=== PATIENT | male | born 1965 | race Caucasian/White ===

== ENCOUNTER 2020-12-31 04:21 | Inpatient (IN) | payer OTHER, MEDICAID, SELFPAY ==
[2020-12-31] VITALS (12 sets, daily range): BP systolic 100; BP diastolic 84; PULSE 91; RESP 16–24; TEMP 36.4; O2SAT 96–98; BMI 26.6
--- NOTE | 2020-12-31 04:46 | PC.NURSE ---
PATIENT WALKING TO THE SINK IN THE MIDDLE OF THE DEPARTMENT, COVERING HIS BODY IN SOAP, WASHING HIS HAIR. SECURITY CALLED TO NURSES STATION. PATIENT STARTING UNDRESSING IN THE HALLWAY. EXPOSING HIMSELF AND TOUCHING HIMSELF IN FRONT OF STAFF. FAIR AT BEDSIDE FOR EVALUATION. POLICE CONTACTED FOR EXTRA ASSISTANCE WITH PATIENT, SECURITY CONTAINING PATIENT TO ONE AREA OF THE EMERGENCY DEPARTMENT. MEDICATION RESTRAINT
[2020-12-31] MEDS: Haloperidol Lactate 5 MG/ML VIAL IM (05:00)
[2020-12-31] MEDS: LORazepam 2 MG/ML VIAL IM (05:00)
--- NOTE | 2020-12-31 05:23 | ED.PSYCH ---
HPI - Psych General Chief Complaint: Psychiatric Symptoms Stated Complaint: CRISIS,WALK INTO D STATED HI/SI Time Seen by Provider: 12/31/20 04:44 History of Present Illness HPI Narrative: 55-year-old male presented today with having agitation. Thoughts of suicidal homicidal ideation. Patient stated he is going to kill all the [place] in town. He is very upset he has thoughts about killing himself but have no specific plans. Patient did not admit to using drugs or alcohol. Denies having any history. Patient was and D's lobby. Related Data Allergies Allergy/AdvReac Type Severity Reaction Status Date / Time No Known Allergies Allergy Verified 12/31/20 04:26 Review of Systems Review of Systems: Unable to obtain 2nd to patient's condition [facility] Past Medical History Attestation statement: The following information was validated with the patient. Social History Social History Advance Directives: No Physical Exam Vital Signs: Vital Signs: Last Vital Signs Temp 97.6 F 12/31/20 04:26 Pulse 91 12/31/20 04:26 Resp 20 12/31/20 04:26 BP 100/84 12/31/20 04:26 Pulse Ox 98 12/31/20 04:26 Body Mass Index 26.6 Appearance: Alert. Oriented X3. Agitated, screaming in the ED. stating he is going to kill people. Eyes: Pupils equal, round and reactive to light. ENT: Pharynx normal. Neck: Normal inspection. Neck supple. No lymph nodes noted. No crepitus CVS: Normal heart rate and rhythm. Pulses normal. Normal S1 and S2 Respiratory: No respiratory distress. Breath sounds normal. No Wheezing. No rales Abdomen: Soft and nontender. No rigidity. No distention. good BS x4 Skin: Skin warm and dry. Normal skin color. Normal skin turgor. Extremities: No lower extremity edema. Neurovascular intact to all extremities. No Lacerations. No Rash Neuro: No motor deficit. No sensory deficit. Moving all extermities. No slurred speech MDM - Psych MDM Narrative Medical decision making narrative: Patient extremely agitated. Potential harm to self and others. Attempted to verbally deescalate the situation to no avail. Patient is sedated using Ativan and Haldol. We will get baseline labs. Will get crisis evaluation. Medical Records Attestation: I reviewed the patient's medical records.
[2020-12-31 07:33] LABS: MANUAL DIFF FLAG NO
[2020-12-31 07:34] LABS: Basophils Percent Auto 0.4 % (0-2); Eosinophils Absolute Auto 0.1 X10*3/uL (0.0-0.4); Eosinophils Percent Auto 1.3 % (0-4); Hematocrit 35.5 % (42-52); Hemoglobin 11.6 g/dl (14.0-18.0); Imm Gran Abs Auto 0.03 X10*3/uL (0.00-0.03); Imm Gran Pct Auto 0.4 % (0.0-0.4); Lymphocytes Absolute Auto 2.4 X10*3/uL (1.2-4.9); Mean Corpuscular HGB Conc 32.7 g/dl (31.0-36.0); Mean Corpuscular Hemoglobin 28.5 pg (27.0-33.0); Mean Corpuscular Volume 87.2 fL (80-98); Mean Platelet Volume 11.3 fL (9.4-12.4); Monocytes Absolute Auto 0.7 X10*3/uL (0.1-1.2); Monocytes Percent Auto 8.9 % (2-11); Neutrophils Absolute Auto 4.9 X10*3/uL (2.0-8.3); Platelet Count 167 X10*3/uL (160-400); Red Blood Count 4.07 X10*6/uL (4.60-5.80); White Blood Count 8.2 X10*3/uL (4.8-10.8)
[2020-12-31 07:52] LABS: Ethanol < 10 mg/dL
[2020-12-31 07:56] LABS: Alanine Aminotransferase 48 U/L (0-40); Albumin Level 3.6 g/dL (3.5-5.0); Alkaline Phosphatase 75 U/L (39-117); Anion Gap 10 (12-20); Aspartate Amino Transferase 43 U/L (5-37); Bilirubin Direct 0.3 mg/dL (0.0-0.5); Bilirubin Total 0.9 mg/dL (0.0-1.0); Blood Urea Nitrogen 14 mg/dL (9-16); Calcium 8.4 mg/dL (8.4-10.2); Carbon Dioxide 26 mmol/L (22-29); Chloride 106 mmol/L (96-108); Estimated Glomerular Filt Rate > 60; Glucose Random 97 mg/dL (60-115); Potassium 3.8 mmol/L (3.3-5.1); Sodium 138 mmol/L (135-145); Total Protein 6.4 g/dL (6.5-8.0)
--- NOTE | 2020-12-31 09:40 | PC.NURSE ---
patient brought over to POD, sleeping at this time. CARE team aware.
--- NOTE | 2020-12-31 16:17 | PC.NURSE ---
pt pre-accepted to M5/M3 for tomorrow (01/01) per Ananya KELLEY
--- NOTE | 2020-12-31 16:31 | PHA.MEDREC ---
Pharmacy Consult ? Medication Reconciliation Pharmacy has completed the medication reconciliation. Patient was in [facility] from 12/24 to 12/28. Medications never picked up from pharmacy
[2020-12-31 20:40] LABS: COVID-19 Test Negative (Negative); IDNOW Serial# 9DD0AD1C
[2020-12-31 20:50] LABS: Amphetamine Screen Urine Not Detected (Not Detect); Barbiturates, Urine Not Detected (Not Detect); Benzodiazepines Screen Urine Not Detected (Not Detect); Cannabinoid Screen Urine POSITIVE (Not Detect); Cocaine Screen Urine POSITIVE (Not Detect); Opiate Screen Urine POSITIVE (Not Detect); Phencyclidine Screen Urine Not Detected (Not Detect)
--- NOTE | 2021-01-01 | ECG_ITS ---
Test Reason : MED CLEARANCE Blood Pressure : / mmHG Vent. Rate : 074 BPM Atrial Rate : 074 BPM P-R Int : 166 ms QRS Dur : 082 ms QT Int : 388 ms P-R-T Axes : 052 064 047 degrees QTc Int : 430 ms Normal sinus rhythm Normal ECG When compared with ECG of 16-APR-2018 07:15, No significant change was found Referred By: Generic ED Physician Electronically Signed By:ANA PAULA WHITAKER
[2021-01-01 05:44] VITALS: BP 107/63; PULSE 58; RESP 17; TEMP 36.1; O2SAT 99
[2021-01-01] MEDS: Lithium Carbonate 300 MG CAPSULE PO ×2 (08:37→22:10)
--- NOTE | 2021-01-01 09:44 | PC.NURSE ---
Patient ambulating throughout pod, conversing and listening to music. Patient is a bed search with plan to go to M3 or M5. At this time there is no estimate to when the patient will be transferred but will be updated on any changes. Currently the patient has no complaints, listening to music through the headphones and pleasantly conversing with staff.
--- NOTE | 2021-01-01 11:25 | PC.NURSE ---
Patient ambulating throughout the pod talking with staff and other patients. Patient very excitable, talking rapidly and singing at times loudly. Patient has no complaints, has been cooperative and redirectable. Patient aware that he is a bed search with a plan for admission to M3 or M5 just awaiting assignment. Patient agreeable to plan and basic needs met.
--- NOTE | 2021-01-01 12:43 | PC.NURSE ---
Patient ambulating throughout the pod with even steady gait, talking and conversing with staff and other patients. Patient very excitable, conversing loudly and rapidly with staff and other patients. Patient able to redirected, headphones on listening to music, calm and cooperative at this time.
--- NOTE | 2021-01-01 15:14 | PC.NURSE ---
Patient alert and oriented, sitting in common area talking with other patients. Patient watching tv and happily conversing. Still waiting bed assignment.
--- NOTE | 2021-01-01 18:59 | PC.NURSE ---
Report given to inpatient behavioral health nurse for patient transfer. Awaiting admision orders.
[2021-01-01 19:29] VITALS: BP 134/82; PULSE 68; RESP 18; TEMP 36.3; O2SAT 100
[2021-01-01 20:50] VITALS: BP 130/98; PULSE 84; RESP 18; TEMP 36; O2SAT 99
[2021-01-01] MEDS: clonazePAM 1 MG TABLET PO (22:10)
[2021-01-01] MEDS: traZODone HCL 100 MG TABLET PO (22:10)
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
[2021-01-02] MEDS: Lithium Carbonate 300 MG CAPSULE PO ×2 (09:03→21:56)
[2021-01-02] MEDS: clonazePAM 1 MG TABLET PO ×2 (09:07→22:00)
[2021-01-02] MEDS: Nicotine 21 MG PATCH.TD24 TRANSDERMA (09:37)
[2021-01-02 13:28] VITALS: BP 112/57; PULSE 84
[2021-01-02] MEDS: cloNIDine HCL 0.1 MG TABLET PO (13:28)
[2021-01-02] MEDS: QUEtiapine Fumarate 50 MG TABLET PO ×3 (13:28→21:57)
--- NOTE | 2021-01-02 14:17 | MHC.RECOVRN ---
55 year old male presented to [facility] on 12/31 via EMS due to WALKING FROM [employer] TO POLICE STATION, WAS SITTING IN THE LOBBY STATING I AM GONNA KILL ALL JESS RICANS IN THE CITY . DENIES SI, DENIES ETOH OR DRUG USE TONIGHT per cage maker machine. Pt subsequently admitted to . T/w met with pt in 508 after Addiction Medicine consult placed for OUD and pt would like to initiate Suboxone. Pt reports using Suboxone off and on for 15 years. Pt has been prescribed Suboxone in the past and finds 8 mg BID helpful. Pt is currently using heroin and cocaine, IN, 1-3 bundles daily, last use 12/31. Current withdrawal symptoms include sleep disturbances, diarrhea, achy bones, and hot/cold.? Pt had spent over a year in [place] and returned to [place] 3 weeks ago. Pt plans on staying in the [place] area and would like to connect to a Suboxone provider in [place].? Case discussed with Susie Mendes APRN.?
[2021-01-02] MEDS: Buprenorphine/Naloxone 8/2 mg FILM 1 FILM SUBLINGUAL (15:30)
[2021-01-02 16:00] VITALS: PULSE 79
[2021-01-02 16:30] VITALS: BP 99/59; PULSE 79; TEMP 36.1
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
--- NOTE | 2021-01-02 16:55 | P.EN_ITS ---
Event Note Date of Service: 01/02/21 Event Note: Brief addiction note: Patient seen by this marketing copywriter and RS RN. COW score of 12. Lsat use reported as prior to admission on 12/31. Reporting daily heroin and cocaine use btwn 10-30 bags Not feeling well. Minimal engagement with this marketing copywriter. Did report previously buying suboxone and taking up to 16mg QD. Plan: -Suboxone 8mg ordered to be given now -if withdrawal sx persist may recieve additional 4mg this evening -Suboxone 8mg QD ordered for the MA . Will reassess in AM and obtain better history and plan and decide on further dosing. -full consult note to follow
[2021-01-02] MEDS: traZODone HCL 100 MG TABLET PO (22:00)
[2021-01-03 06:10] VITALS: BP 91/52; PULSE 65; RESP 20; TEMP 36.8; O2SAT 99
[2021-01-03 07:00] VITALS: BMI 33.3
[2021-01-03 08:32] LABS: Estimated Average Glucose 100 mg/dL; Hemoglobin A1c % 5.1 %
[2021-01-03] MEDS: Nicotine 21 MG PATCH.TD24 TRANSDERMA (08:38)
[2021-01-03 08:44] LABS: Ammonia 38 umol/L (13-55)
[2021-01-03 08:55] LABS: Amylase 49 U/L (28-100); Cholesterol 154 mg/dL; HDL Cholesterol 34 mg/dL; Iron 32 mcg/dL (45-160); LDL Cholesterol Calculated 109 mg/dl; Lipase 15 U/L (8-78); Percent Iron Saturation 10 % (15-50); Total Iron Binding Capacity 318 mcg/dL (228-428); Triglycerides 59 mg/dL; Unsaturated Iron Binding 286 ug/dL
[2021-01-03] MEDS: QUEtiapine Fumarate 50 MG TABLET PO ×2 (08:57→20:51)
[2021-01-03] MEDS: Lithium Carbonate 300 MG CAPSULE PO ×2 (08:57→20:51)
[2021-01-03] MEDS: Buprenorphine/Naloxone 8/2 mg FILM 1 FILM SUBLINGUAL (08:58)
[2021-01-03 09:15] LABS: Thyroid Stimulating Hormone 0.29 uIU/mL (0.32-4.0)
[2021-01-03] MEDS: clonazePAM 1 MG TABLET PO ×2 (09:19→20:56)
[2021-01-03 09:29] LABS: Folate 8.2 ng/mL (> or = 4.0); Vitamin B12 245 pg/mL (200-900)
--- NOTE | 2021-01-03 13:15 | MHC.RECOVRN ---
T/w met with pt after Suboxone initiation. Pt reports feeling great and denies withdrawal symptoms. Pt reiterated that he needs to attempt to obtain an ID from [place]. Pt also reiterated that while in [place] he was receciving 8 mg BID. Case discussed with Susie Mendes APRN.
[2021-01-03 16:00] VITALS: PULSE 88
--- NOTE | 2021-01-03 16:53 | HO.PSYCHPN ---
Subjective Subjective Date of Service: 01/03/21 Reason For Visit: Psychosis Subjective Notes: Conditional Voluntary Healthcare Proxy: No Guardianship: No Medical Problems Affecting Mental Status: No Interim History: Reports improvement with initiation of Suboxone, but with sedation as observed by addictions team and M5 team. Discussed decreasing Seroquel which he is willing to trial with the understanding we can work with the dosage as his needs evolve. Reports long hx of poor sleep, and finds the ability to rest today healing. Denies withdrawal sx when we met Medication Compliance: Yes Side effects from medications: No Attending Groups: No Review of Systems Reports behavioral changes Psychiatric: Reports abnormal sleep pattern, Reports anxiety, Reports behavioral changes, Reports change in appetite, Reports depression, Reports difficulty concentrating, Reports auditory hallucinations, Reports hopelessness, Reports irritability, Reports mood swings, Reports paranoia, Reports hallucinations and Reports suicidal ideation (able to contract for safety on M5.) Mental Status Exam Mental Status Exam Patient Appearance: Appropriate Patient Orientation: Person, Place, Time and Situation Level of Consciousness: Awake and Alert Patient Behavior: Appropriate, Talkative, Cooperative, Fatigued and Good Eye Contact Mood Description: Depressed Affect Description: Flat Patient Cognition Impaired: No Ability to Follow Directions: Good Speech Pattern: Clear and Spontaneous Speech Memory Description: Episodic Impaired Hallucinations: None Delusions: Paranoid Ideation Thought Process: Distracted Thought Content: positive for Circumstantial, positive for Tangential and positive for Suicidal Ideation Depressive Symptoms: Increased Anxiety, Diff. Making Decisions, Difficulty Sleeping, Changes in Appetite, Low Self Esteem, Loss of Energy and Difficulty Concentrating Judgement: Fair Diagnostics Vital Signs (24Hr): Vital Signs - 24 hr 01/03/21 06:10 Temperature 98.2 F Pulse Rate 65 Respiratory Rate 20 Blood Pressure 91/52 L Pulse Oximetry 99 Body Mass Index 33.3 Labs Results: 12/31/20 07:26 12/31/20 07:26 Labs: Laboratory Results - last 48 hr 01/03/21 01/03/21 01/03/21 08:04 08:05 08:05 Estimat Average Glucose Hemoglobin A1c % Magnesium 2.0 Iron 32 L TIBC 318 % Saturation 10 L Unsat Iron Binding 286 Ammonia 38 Triglycerides 59 Cholesterol 154 LDL Cholesterol, Calc 109 HDL Cholesterol 34 Amylase 49 Lipase 15 Vitamin B12 245 Folate 8.2 TSH 0.29 L 01/03/21 08:05 Estimat Average Glucose 100 Hemoglobin A1c % 5.1 Magnesium Iron TIBC % Saturation Unsat Iron Binding Ammonia Triglycerides Cholesterol LDL Cholesterol, Calc HDL Cholesterol Amylase Lipase Vitamin B12 Folate TSH Medications Medications Current Medications Generic Name Dose Route Start Last Admin Trade Name Foxq PRN Reason Stop Dose Admin Acetaminophen 650 mg 01/01/21 19:23 Acetaminophen 325 Mg Tablet PO Q6H PRN Headache/Pain Mild Scale (1-3) Al Hydroxide/Mg Hydroxide 30 ml 01/01/21 19:23 Magnesium Hydrox/Alum Hydrox 30 Ml Oral.Susp PO Q6H PRN Heartburn/Nausea Buprenorphine/Naloxone 1 film 01/03/21 09:00 01/03/21 08:58 Buprenorphine/Naloxone 8/2 Mg Film SUBLINGUAL 1 film DAILY SHMUEL Administration Clonazepam 1 mg 01/03/21 14:41 Clonazepam 1 Mg Tablet PO BID PRN Restlessness Clonidine HCl 0.1 mg 01/03/21 14:41 Clonidine Hcl 0.1 Mg Tablet PO BID PRN withdrawal Protocol Haloperidol Lactate 5 mg 01/02/21 13:01 Haloperidol Lactate 10 Mg/5 Ml Oral.Conc PO BID PRN psychosis, agitation Hydroxyzine HCl 50 mg 12/31/20 22:51 Hydroxyzine Hcl 50 Mg Tablet PO BID PRN Anxiety Hydroxyzine HCl 25 mg 01/01/21 19:23 Hydroxyzine Hcl 25 Mg Tablet PO BEDTIME PRN Anxiety [place] Carbonate 300 mg 01/01/21 09:00 01/03/21 08:57 [place] Carbonate 300 Mg Capsule PO 300 mg BID SHMUEL Administration Magnesium Hydroxide 30 ml 01/01/21 19:23 Milk Of Magnesia 30 Ml Oral.Susp PO DAILY PRN Constipation Nicotine 21 mg 01/02/21 09:30 01/03/21 08:38 Nicotine 21 Mg Patch.Td24 TRANSDERMA 21 mg DAILY SHMUEL Administration Nicotine Polacrilex 4 mg 12/31/20 10:23 01/03/21 10:26 Nicotine Polacrilex 4 Mg Lozenge BUCCAL 4 mg Q2H PRN Administration Nicotine Cravings Quetiapine Fumarate 50 mg 01/02/21 13:00 01/03/21 08:57 Quetiapine Fumarate 50 Mg Tablet PO 50 mg BID SHMUEL Administration Trazodone HCl 50 mg 01/03/21 14:41 Trazodone Hcl 50 Mg Tablet PO BEDTIME PRN insomnia Allergies Allergies Allergy/AdvReac Type Severity Reaction Status Date / Time No Known Allergies Allergy Verified 12/31/20 04:26 Assessment & Plan Assessment & Plan (1) Bipolar disorder with psychotic features: Status: Acute Code(s): F31.9 - Bipolar disorder, unspecified Assessment and Plan: 55 yo male, recent return from [place], off meds for several years, hx of bipolar disorder, depression with psychosis and a heavy history of multiple substances abuse-primarily heroin and cocaine, presents homeless with SI, HI, sexual disinhibition and in withdrawal from opiates, cocaine and cannabis. -Continue [place] -Change Haldol to prn -Decrease Seroquel to 50 mg bid B Complex 1 tab daily FeSo4 324 mg daily as pt is anemic (2) Opioid use disorder, severe, dependence: Status: Acute Code(s): F11.20 - Opioid dependence, uncomplicated Assessment and Plan: -Addiction consult to begin Clonidine -Clonidine prn -COWS (3) Cocaine use disorder, severe, dependence: Status: Acute Code(s): F14.20 - Cocaine dependence, uncomplicated (4) Cannabis use disorder, severe, dependence: Status: Acute Code(s): F12.20 - Cannabis dependence, uncomplicated Greater than 50% of the session was spent on counseling and/or coordination of care Reason for contiued inpatient stay Substantial Risk for: harm to self, inability to function, rapid decompensation and med/psych decompensation
[2021-01-03 18:00] VITALS: BP 117/71; PULSE 88; TEMP 36.4
[2021-01-03] MEDS: Ferrous Sulfate 324 MG TABLET.DR PO (22:18)
[2021-01-04 06:00] VITALS: BP 111/69; PULSE 90; RESP 18; TEMP 36.3; O2SAT 98
[2021-01-04] MEDS: Nicotine 21 MG PATCH.TD24 TRANSDERMA (08:53)
[2021-01-04] MEDS: Lithium Carbonate 300 MG CAPSULE PO ×2 (08:54→20:40)
[2021-01-04] MEDS: Buprenorphine/Naloxone 8/2 mg FILM 1 FILM SUBLINGUAL (08:54)
[2021-01-04] MEDS: Ferrous Sulfate 324 MG TABLET.DR PO (08:54)
[2021-01-04] MEDS: clonazePAM 1 MG TABLET PO ×2 (09:01→20:45)
[2021-01-04] MEDS: QUEtiapine Fumarate 50 MG TABLET PO ×2 (09:05→20:40)
[2021-01-04 13:36] VITALS: BP 116/68; PULSE 84
[2021-01-04] MEDS: cloNIDine HCL 0.1 MG TABLET PO (13:36)
[2021-01-04 13:37] VITALS: BP 116/68; PULSE 84; RESP 16; TEMP 36.2; O2SAT 97
[2021-01-04 16:00] VITALS: PULSE 89
--- NOTE | 2021-01-04 16:19 | P.PNPSI_ITS ---
Subjective Subjective Date of Service: 01/04/21 Reason For Visit: Psychosis Subjective Notes: Conditional Voluntary Healthcare Proxy: No Guardianship: No Medical Problems Affecting Mental Status: No Interim History: Reports poor quality sleep with ASHLEY, intermittent auditory perceptual alterations and knee pain. Discussed lab results, anemia-pt reports no history, does report current Hep C is not treated. Discussed medication titration. Medication Compliance: Yes Side effects from medications: No Attending Groups: No Review of Systems Musculoskeletal: Reports other (knee pain) Reports behavioral changes Psychiatric: Reports abnormal sleep pattern, Reports anxiety, Reports behavioral changes, Reports depression, Reports difficulty concentrating, Reports hopelessness, Reports irritability, Reports anhedonia, Reports mood swings, Reports paranoia, Reports hallucinations and Reports suicidal ideation Mental Status Exam Mental Status Exam Patient Appearance: Appropriate Patient Orientation: Person, Place, Time and Situation Level of Consciousness: Awake and Alert Patient Behavior: Talkative and Good Eye Contact Mood Description: Depressed and Anxious Affect Description: Flat Patient Cognition Impaired: No Ability to Follow Directions: Fair Speech Pattern: Spontaneous Speech Memory Description: Episodic Impaired Hallucinations: Auditory Delusions: Paranoid Ideation Thought Process: Distracted Thought Content: positive for Perseveration Depressive Symptoms: Increased Anxiety, Insomnia, Difficulty Sleeping, Unhappiness and Difficulty Concentrating Judgement: Fair Diagnostics Vital Signs (24Hr): Vital Signs - 24 hr 01/03/21 18:00 01/04/21 06:00 01/04/21 13:36 Temperature 97.5 F 97.4 F Pulse Rate 88 90 84 Respiratory Rate 18 Blood Pressure 117/71 111/69 116/68 Pulse Oximetry 98 01/04/21 13:37 Temperature 97.2 F Pulse Rate 84 Respiratory Rate 16 Blood Pressure 116/68 Pulse Oximetry 97 Body Mass Index 33.3 Labs Results: 12/31/20 07:26 12/31/20 07:26 Labs: Laboratory Results - last 48 hr 01/03/21 01/03/21 01/03/21 08:04 08:05 08:05 Estimat Average Glucose Hemoglobin A1c % Magnesium 2.0 Iron 32 L TIBC 318 % Saturation 10 L Unsat Iron Binding 286 Ammonia 38 Triglycerides 59 Cholesterol 154 LDL Cholesterol, Calc 109 HDL Cholesterol 34 Amylase 49 Lipase 15 Vitamin B12 245 Folate 8.2 TSH 0.29 L 01/03/21 08:05 Estimat Average Glucose 100 Hemoglobin A1c % 5.1 Magnesium Iron TIBC % Saturation Unsat Iron Binding Ammonia Triglycerides Cholesterol LDL Cholesterol, Calc HDL Cholesterol Amylase Lipase Vitamin B12 Folate TSH Medications Medications Current Medications Generic Name Dose Route Start Last Admin Trade Name Freq PRN Reason Stop Dose Admin Acetaminophen 650 mg 01/01/21 19:23 Acetaminophen 325 Mg Tablet PO Q6H PRN Headache/Pain Mild Scale (1-3) Al Hydroxide/Mg Hydroxide 30 ml 01/01/21 19:23 Magnesium Hydrox/Alum Hydrox 30 Ml Oral.Susp PO Q6H PRN Heartburn/Nausea Buprenorphine/Naloxone 1 film 01/03/21 09:00 01/04/21 08:54 Buprenorphine/Naloxone 8/2 Mg Film SUBLINGUAL 1 film DAILY SHMUEL Administration Clonazepam 1 mg 01/03/21 14:41 01/04/21 09:01 Clonazepam 1 Mg Tablet PO 1 mg BID PRN Administration Restlessness Clonidine HCl 0.1 mg 01/03/21 14:41 01/04/21 13:36 Clonidine Hcl 0.1 Mg Tablet PO 0.1 mg BID PRN Administration withdrawal Protocol Ferrous Sulfate 324 mg 01/03/21 22:00 01/04/21 08:54 Ferrous Sulfate 324 Mg Tablet.Dr PO 324 mg DAILY SHMUEL Administration Haloperidol Lactate 5 mg 01/02/21 13:01 Haloperidol Lactate 10 Mg/5 Ml Oral.Conc PO BID PRN psychosis, agitation Hydroxyzine HCl 50 mg 12/31/20 22:51 Hydroxyzine Hcl 50 Mg Tablet PO BID PRN Anxiety Hydroxyzine HCl 25 mg 01/01/21 19:23 Hydroxyzine Hcl 25 Mg Tablet PO BEDTIME PRN Anxiety [place] Carbonate 300 mg 01/01/21 09:00 01/04/21 08:54 [place] Carbonate 300 Mg Capsule PO 300 mg BID SHMUEL Administration Magnesium Hydroxide 30 ml 01/01/21 19:23 Milk Of Magnesia 30 Ml Oral.Susp PO DAILY PRN Constipation Multivitamins 1 tab 01/04/21 09:00 01/04/21 08:53 B-Complex With Vitamin C Tablet PO 1 tab DAILY SHMUEL Administration Nicotine 21 mg 01/02/21 09:30 01/04/21 08:53 Nicotine 21 Mg Patch.Td24 TRANSDERMA 21 mg DAILY SHMUEL Administration Nicotine Polacrilex 4 mg 12/31/20 10:23 01/04/21 13:35 Nicotine Polacrilex 4 Mg Lozenge BUCCAL 4 mg Q2H PRN Administration Nicotine Cravings Quetiapine Fumarate 50 mg 01/02/21 13:00 01/04/21 09:05 Quetiapine Fumarate 50 Mg Tablet PO 50 mg BID SHMUEL Administration Trazodone HCl 50 mg 01/03/21 14:41 Trazodone Hcl 50 Mg Tablet PO BEDTIME PRN insomnia Allergies Allergies Allergy/AdvReac Type Severity Reaction Status Date / Time No Known Allergies Allergy Verified 12/31/20 04:26 Assessment & Plan Assessment & Plan (1) Bipolar disorder with psychotic features: Status: Acute Code(s): F31.9 - Bipolar disorder, unspecified Assessment and Plan: 55 yo male, recent return from [place], off meds for several years, hx of bipolar disorder, depression with psychosis and a heavy history of multiple substances abuse-primarily heroin and cocaine, presents homeless with SI, HI, sexual disinhibition and in withdrawal from opiates, cocaine and cannabis. Today reporting knee pain, ASHLEY,sleep disturbance, auditory perceptual alterations. -Increase Seroquel to 50 mg tid -Lidocaine Patch for knee (2) Opioid use disorder, severe, dependence: Status: Acute Code(s): F11.20 - Opioid dependence, uncomplicated Assessment and Plan: -Suboxone -Clonidine prn -COWS (3) Cocaine use disorder, severe, dependence: Status: Acute Code(s): F14.20 - Cocaine dependence, uncomplicated (4) Cannabis use disorder, severe, dependence: Status: Acute Code(s): F12.20 - Cannabis dependence, uncomplicated Greater than 50% of the session was spent on counseling and/or coordination of care Reason for contiued inpatient stay Substantial Risk for: harm to self, harm to others, inability to function and rapid decompensation
[2021-01-04 17:58] VITALS: BP 110/64; PULSE 89; TEMP 36.3
[2021-01-04] MEDS: traZODone HCL 50 MG TABLET PO (20:45)
[2021-01-05 08:00] VITALS: BP 115/61; PULSE 82; RESP 16; TEMP 36.1; O2SAT 98
[2021-01-05] MEDS: Buprenorphine/Naloxone 8/2 mg FILM 1 FILM SUBLINGUAL (08:12)
[2021-01-05] MEDS: QUEtiapine Fumarate 50 MG TABLET PO (08:12)
[2021-01-05] MEDS: Lithium Carbonate 300 MG CAPSULE PO ×2 (08:12→22:27)
[2021-01-05] MEDS: Nicotine 21 MG PATCH.TD24 TRANSDERMA (08:12)
[2021-01-05] MEDS: Ferrous Sulfate 324 MG TABLET.DR PO (08:12)
[2021-01-05] MEDS: Lidocaine 4 % Patch ADH..PATCH 1 PATCH TRANSDERMA (08:15)
--- NOTE | 2021-01-05 10:09 | P.PNPSI_ITS ---
Subjective Subjective Date of Service: 01/05/21 Reason For Visit: Psychosis Subjective Notes: Conditional Voluntary Healthcare Proxy: No Guardianship: No Medical Problems Affecting Mental Status: No Medication Compliance: Yes Side effects from medications: No Attending Groups: Intermittent Review of Systems Acute medical concerns: No Mental Status Exam Mental Status Exam Narrative: casually dressed, kempt, standng too close to provider Patient Appearance: Well Grooomed and Appropriate Patient Orientation: Person, Place, Time and Situation Level of Consciousness: Awake Patient Behavior: Talkative and Invasion - Personal Space Mood Description: Anxious Affect Description: Appropriate (oddly happy for circumstances, discussing of brother 21 years ago - , dropping names of family /social workers) Ability to Follow Directions: Fair Speech Pattern: Clear Hallucinations: Auditory Thought Process: Racing Thought Content: positive for Tangential Depressive Symptoms: Insomnia Abnormal Motor Activity Signs and Symptoms: Hyperactivity and Restlessness Judgement: Fair Diagnostics Vital Signs (24Hr): Vital Signs - 24 hr 01/04/21 13:36 01/04/21 13:37 01/04/21 17:58 Temperature 97.2 F 97.3 F Pulse Rate 84 84 89 Respiratory Rate 16 Blood Pressure 116/68 116/68 110/64 Pulse Oximetry 97 Body Mass Index 33.3 Labs Results: 12/31/20 07:26 12/31/20 07:26 Medications Medications Current Medications Generic Name Dose Route Start Last Admin Trade Name Maximilian PRN Reason Stop Dose Admin Acetaminophen 650 mg 01/01/21 19:23 Acetaminophen 325 Mg Tablet PO Q6H PRN Headache/Pain Mild Scale (1-3) Al Hydroxide/Mg Hydroxide 30 ml 01/01/21 19:23 Magnesium Hydrox/Alum Hydrox 30 Ml Oral.Susp PO Q6H PRN Heartburn/Nausea Buprenorphine/Naloxone 1 film 01/03/21 09:00 01/05/21 08:12 Buprenorphine/Naloxone 8/2 Mg Film SUBLINGUAL 1 film DAILY SHMUEL Administration Clonazepam 1 mg 01/03/21 14:41 01/04/21 20:45 Clonazepam 1 Mg Tablet PO 1 mg BID PRN Administration Restlessness Clonidine HCl 0.1 mg 01/03/21 14:41 01/04/21 13:36 Clonidine Hcl 0.1 Mg Tablet PO 0.1 mg BID PRN Administration withdrawal Protocol Ferrous Sulfate 324 mg 01/03/21 22:00 01/05/21 08:12 Ferrous Sulfate 324 Mg Tablet.Dr PO 324 mg DAILY SHMUEL Administration Haloperidol Lactate 5 mg 01/02/21 13:01 Haloperidol Lactate 10 Mg/5 Ml Oral.Conc PO BID PRN psychosis, agitation Hydroxyzine HCl 50 mg 12/31/20 22:51 Hydroxyzine Hcl 50 Mg Tablet PO BID PRN Anxiety Hydroxyzine HCl 25 mg 01/01/21 19:23 Hydroxyzine Hcl 25 Mg Tablet PO BEDTIME PRN Anxiety Lidocaine 1 patch 01/04/21 16:30 01/05/21 08:15 Lidocaine 4 % Patch Adh..Patch TRANSDERMA 1 patch DAILY SHMUEL Administration Protocol [place] Carbonate 300 mg 01/01/21 09:00 01/05/21 08:12 [place] Carbonate 300 Mg Capsule PO 300 mg BID SHMUEL Administration Magnesium Hydroxide 30 ml 01/01/21 19:23 Milk Of Magnesia 30 Ml Oral.Susp PO DAILY PRN Constipation Multivitamins 1 tab 01/04/21 09:00 01/05/21 08:12 B-Complex With Vitamin C Tablet PO 1 tab DAILY SHMUEL Administration Nicotine 21 mg 01/02/21 09:30 01/05/21 08:12 Nicotine 21 Mg Patch.Td24 TRANSDERMA 21 mg DAILY SHMUEL Administration Nicotine Polacrilex 4 mg 12/31/20 10:23 01/04/21 21:18 Nicotine Polacrilex 4 Mg Lozenge BUCCAL 4 mg Q2H PRN Administration Nicotine Cravings Quetiapine Fumarate 50 mg 01/04/21 21:00 01/05/21 08:12 Quetiapine Fumarate 50 Mg Tablet PO 50 mg TID SHMUEL Administration Trazodone HCl 50 mg 01/03/21 14:41 01/04/21 20:45 Trazodone Hcl 50 Mg Tablet PO 50 mg BEDTIME PRN Administration insomnia Allergies Allergies Allergy/AdvReac Type Severity Reaction Status Date / Time No Known Allergies Allergy Verified 12/31/20 04:26 Assessment & Plan Assessment & Plan (1) Bipolar disorder with psychotic features: Status: Acute Code(s): F31.9 - Bipolar disorder, unspecified Assessment and Plan: Partial effect of medications will inc pm dose of seroquel for sleep continue lithium redirect in [facility] if inapp personal space (2) Opioid use disorder, severe, dependence: Status: Acute Code(s): F11.20 - Opioid dependence, uncomplicated Assessment and Plan: -Suboxone -Clonidine prn -COWS (3) Cocaine use disorder, severe, dependence: Status: Acute Code(s): F14.20 - Cocaine dependence, uncomplicated (4) Cannabis use disorder, severe, dependence: Status: Acute Code(s): F12.20 - Cannabis dependence, uncomplicated Greater than 50% of the session was spent on counseling and/or coordination of care Reason for contiued inpatient stay Substantial Risk for: inability to function and rapid decompensation
[2021-01-05] MEDS: clonazePAM 1 MG TABLET PO ×2 (13:44→22:27)
[2021-01-05] MEDS: QUEtiapine Fumarate 25 MG TABLET PO (14:50)
[2021-01-05 18:00] VITALS: BP 117/72; PULSE 111
[2021-01-05] MEDS: QUEtiapine Fumarate 100 MG TABLET PO (22:27)
--- NOTE | 2021-01-06 | ECG_ITS ---
Test Reason : CHECK QTC Blood Pressure : / mmHG Vent. Rate : 093 BPM Atrial Rate : 093 BPM P-R Int : 166 ms QRS Dur : 082 ms QT Int : 364 ms P-R-T Axes : 061 048 044 degrees QTc Int : 452 ms Normal sinus rhythm Possible Left atrial enlargement Borderline ECG When compared with ECG of 01-JAN-2021 14:57, No significant change was found Referred By: Cookie Giles Electronically Signed By:Rory Pascual
[2021-01-06 06:00] VITALS: BP 111/67; PULSE 77; RESP 20; TEMP 36.2; O2SAT 93
[2021-01-06] MEDS: QUEtiapine Fumarate 25 MG TABLET PO ×2 (08:29→14:27)
[2021-01-06] MEDS: Lithium Carbonate 300 MG CAPSULE PO ×2 (08:29→21:24)
[2021-01-06] MEDS: Lidocaine 4 % Patch ADH..PATCH 1 PATCH TRANSDERMA (08:29)
[2021-01-06] MEDS: Nicotine 21 MG PATCH.TD24 TRANSDERMA (08:29)
[2021-01-06] MEDS: Ferrous Sulfate 324 MG TABLET.DR PO (08:29)
[2021-01-06] MEDS: Buprenorphine/Naloxone 8/2 mg FILM 1 FILM SUBLINGUAL (08:55)
--- NOTE | 2021-01-06 12:28 | P.PNPSI_ITS ---
Subjective Subjective Date of Service: 01/06/21 Reason For Visit: Psychosis Subjective Notes: Conditional Voluntary Healthcare Proxy: No Guardianship: No Medical Problems Affecting Mental Status: No Interim History: Pt seems medicated- says it is due to suboxone- -when spoke with pt about lower suboxone denied over medicated feels AH are better, slept last night on medication Medication Compliance: Yes Side effects from medications: Yes (watch for over medicated?) Attending Groups: Yes Review of Systems Acute medical concerns: No Mental Status Exam Mental Status Exam Narrative: Pt irinampt, fair eye contact- Patient Orientation: Person, Place, Time and Situation Level of Consciousness: Awake and Drowsy Patient Behavior: Appropriate and Cooperative Mood Description: Expansive Affect Description: Calm Patient Cognition Impaired: No Ability to Follow Directions: Good Speech Pattern: Clear Delusions: Grandiose (says he has 3 doctorate degrees) Thought Process: Intact Judgement: Fair Diagnostics Vital Signs (24Hr): Vital Signs - 24 hr 01/05/21 18:00 01/06/21 06:00 Temperature 97.1 F Pulse Rate 111 H 77 Respiratory Rate 20 Blood Pressure 117/72 111/67 Pulse Oximetry 93 Body Mass Index 33.3 Labs Results: 12/31/20 07:26 12/31/20 07:26 Medications Medications Current Medications Generic Name Dose Route Start Last Admin Trade Name Maximilian PRN Reason Stop Dose Admin Acetaminophen 650 mg 01/01/21 19:23 Acetaminophen 325 Mg Tablet PO Q6H PRN Headache/Pain Mild Scale (1-3) Al Hydroxide/Mg Hydroxide 30 ml 01/01/21 19:23 Magnesium Hydrox/Alum Hydrox 30 Ml Oral.Susp PO Q6H PRN Heartburn/Nausea Buprenorphine/Naloxone 1 film 01/03/21 09:00 01/06/21 08:55 Buprenorphine/Naloxone 8/2 Mg Film SUBLINGUAL 1 film DAILY SHMUEL Administration Clonazepam 1 mg 01/03/21 14:41 01/05/21 22:27 Clonazepam 1 Mg Tablet PO 1 mg BID PRN Administration Restlessness Clonidine HCl 0.1 mg 01/03/21 14:41 01/04/21 13:36 Clonidine Hcl 0.1 Mg Tablet PO 0.1 mg BID PRN Administration withdrawal Protocol Ferrous Sulfate 324 mg 01/03/21 22:00 01/06/21 08:29 Ferrous Sulfate 324 Mg Tablet. PO 324 mg DAILY SHMUEL Administration Haloperidol Lactate 5 mg 01/02/21 13:01 Haloperidol Lactate 10 Mg/5 Ml Oral.Conc PO BID PRN psychosis, agitation Hydroxyzine HCl 50 mg 12/31/20 22:51 Hydroxyzine Hcl 50 Mg Tablet PO BID PRN Anxiety Hydroxyzine HCl 25 mg 01/01/21 19:23 Hydroxyzine Hcl 25 Mg Tablet PO BEDTIME PRN Anxiety Lidocaine 1 patch 01/04/21 16:30 01/06/21 08:29 Lidocaine 4 % Patch Adh..Patch TRANSDERMA 1 patch DAILY SHMUEL Administration Protocol [place] Carbonate 300 mg 01/01/21 09:00 01/06/21 08:29 [place] Carbonate 300 Mg Capsule PO 300 mg BID SHMUEL Administration Magnesium Hydroxide 30 ml 01/01/21 19:23 Milk Of Magnesia 30 Ml Oral.Susp PO DAILY PRN Constipation Multivitamins 1 tab 01/04/21 09:00 01/06/21 08:29 B-Complex With Vitamin C Tablet PO 1 tab DAILY SHMUEL Administration Nicotine 21 mg 01/02/21 09:30 01/06/21 08:29 Nicotine 21 Mg Patch.Td24 TRANSDERMA 21 mg DAILY SHMUEL Administration Nicotine Polacrilex 4 mg 12/31/20 10:23 01/05/21 20:30 Nicotine Polacrilex 4 Mg Lozenge BUCCAL 4 mg Q2H PRN Administration Nicotine Cravings Quetiapine Fumarate 25 mg 01/05/21 15:00 01/06/21 08:29 Quetiapine Fumarate 25 Mg Tablet PO 25 mg BID@0800,1500 [facility] Administration Quetiapine Fumarate 100 mg 01/05/21 21:00 01/06/21 04:42 Quetiapine Fumarate 100 Mg Tablet PO Not Given BEDTIME MRX1 [facility] Allergies Allergies Allergy/AdvReac Type Severity Reaction Status Date / Time No Known Allergies Allergy Verified 12/31/20 04:26 Assessment & Plan Assessment & Plan (1) Bipolar disorder with psychotic features: Status: Acute Code(s): F31.9 - Bipolar disorder, unspecified Assessment and Plan: Partial effect of medications will inc pm dose of seroquel for sleep continue lithium redirect in [facility] if inapp personal space (2) Opioid use disorder, severe, dependence: Status: Acute Code(s): F11.20 - Opioid dependence, uncomplicated Assessment and Plan: -Suboxone -Clonidine prn watch for oversedation avoid benzodiazapines, will lower clonazepam dose now that not as manic (3) Cocaine use disorder, severe, dependence: Status: Acute Code(s): F14.20 - Cocaine dependence, uncomplicated (4) Cannabis use disorder, severe, dependence: Status: Acute Code(s): F12.20 - Cannabis dependence, uncomplicated Greater than 50% of the session was spent on counseling and/or coordination of care Reason for contiued inpatient stay Substantial Risk for: rapid decompensation
[2021-01-06 18:00] VITALS: BP 128/61; PULSE 90; TEMP 36.6
[2021-01-06] MEDS: clonazePAM 1 MG TABLET PO (19:47)
[2021-01-06] MEDS: Milk of Magnesia 30 ML ORAL.SUSP PO (20:58)
[2021-01-06] MEDS: hydrOXYzine HCL 50 MG TABLET PO (20:58)
[2021-01-06] MEDS: QUEtiapine Fumarate 100 MG TABLET PO (20:59)
[2021-01-07] MEDS: QUEtiapine Fumarate 100 MG TABLET PO ×2 (00:23→20:48)
[2021-01-07] MEDS: Nicotine 21 MG PATCH.TD24 TRANSDERMA (09:38)
[2021-01-07] MEDS: Lithium Carbonate 300 MG CAPSULE PO ×2 (09:38→20:48)
[2021-01-07] MEDS: Ferrous Sulfate 324 MG TABLET.DR PO (09:38)
[2021-01-07] MEDS: QUEtiapine Fumarate 25 MG TABLET PO ×2 (09:38→14:29)
[2021-01-07] MEDS: Lidocaine 4 % Patch ADH..PATCH 1 PATCH TRANSDERMA (09:41)
[2021-01-07] MEDS: clonazePAM 0.5 MG TABLET PO ×2 (10:28→20:53)
[2021-01-07] MEDS: Buprenorphine/Naloxone 8/2 mg FILM 1 FILM SUBLINGUAL (10:28)
--- NOTE | 2021-01-07 13:24 | HO.PSYCHPN ---
Subjective Subjective Date of Service: 01/07/21 Reason For Visit: Psychosis Subjective Notes: Conditional Voluntary Healthcare Proxy: No Guardianship: No Medical Problems Affecting Mental Status: No Interim History: Team reports a difficult weekend for pt. Several behavioral incidents reported-inappropriate discussion with younger female patients, alleged use of contraband (Suboxone) and attempting to give this to another patient, verbally caustic and abusive to team and other patients and unable to participate in milieu in a way that allows him to be part of the group. Pt angry and demanding when we met. Discussed these concerns, pt not currently manic, psychotic or suicidal, but wanting to make environmental changes that the milieu cannot accomodate. Pt does state I don't get along with other people and I don't really care, I get what I want. Discussed discharge with pt and he agrees. Team has arranged for him to attend [facility], where he can align with [employer] for mental health services and [facility]. We will plan for a discharge date of 01/08/21 pending observation this evening for breakthrough sx of mayur, psychosis. Review of Systems Reports behavioral changes Psychiatric: Reports behavioral changes and Reports irritability Mental Status Exam Mental Status Exam Patient Appearance: Appropriate Patient Orientation: Person, Place, Time and Situation Level of Consciousness: Alert Patient Behavior: Appropriate, Talkative, Restless, Distractible and Good Eye Contact Mood Description: Labile and Angry Affect Description: Labile Patient Cognition Impaired: No Ability to Follow Directions: Good Speech Pattern: Spontaneous Speech Memory Description: Episodic Impaired Hallucinations: None Delusions: Not Present Thought Process: Goal Oriented Thought Content: positive for Circumstantial Depressive Symptoms: Increased Irritability Abnormal Motor Activity Signs and Symptoms: Restlessness Judgement: Good Diagnostics Vital Signs (24Hr): Vital Signs - 24 hr 01/06/21 18:00 Temperature 97.9 F Pulse Rate 90 Blood Pressure 128/61 Body Mass Index 33.3 Labs Results: 12/31/20 07:26 12/31/20 07:26 Medications Medications Current Medications Generic Name Dose Route Start Last Admin Trade Name Freq PRN Reason Stop Dose Admin Acetaminophen 650 mg 01/01/21 19:23 Acetaminophen 325 Mg Tablet PO Q6H PRN Headache/Pain Mild Scale (1-3) Al Hydroxide/Mg Hydroxide 30 ml 01/01/21 19:23 Magnesium Hydrox/Alum Hydrox 30 Ml Oral.Susp PO Q6H PRN Heartburn/Nausea Buprenorphine/Naloxone 1 film 01/07/21 11:00 01/07/21 10:28 Buprenorphine/Naloxone 8/2 Mg Film SUBLINGUAL 1 film DAILY SHMUEL Administration Clonazepam 0.5 mg 01/06/21 20:26 01/07/21 10:28 Clonazepam 0.5 Mg Tablet PO 0.5 mg BID PRN Administration Restlessness Clonidine HCl 0.1 mg 01/03/21 14:41 01/04/21 13:36 Clonidine Hcl 0.1 Mg Tablet PO 0.1 mg BID PRN Administration withdrawal Protocol Ferrous Sulfate 324 mg 01/03/21 22:00 01/07/21 09:38 Ferrous Sulfate 324 Mg Tablet.Dr PO 324 mg DAILY SHMUEL Administration Haloperidol Lactate 5 mg 01/02/21 13:01 Haloperidol Lactate 10 Mg/5 Ml Oral.Conc PO BID PRN psychosis, agitation Hydroxyzine HCl 50 mg 12/31/20 22:51 01/06/21 20:58 Hydroxyzine Hcl 50 Mg Tablet PO 50 mg BID PRN Administration Anxiety Hydroxyzine HCl 25 mg 01/01/21 19:23 Hydroxyzine Hcl 25 Mg Tablet PO BEDTIME PRN Anxiety Lidocaine 1 patch 01/04/21 16:30 01/07/21 09:41 Lidocaine 4 % Patch Adh..Patch TRANSDERMA 1 patch DAILY SHMUEL Administration Protocol [place] Carbonate 300 mg 01/01/21 09:00 01/07/21 09:38 [place] Carbonate 300 Mg Capsule PO 300 mg BID SHMUEL Administration Magnesium Hydroxide 30 ml 01/01/21 19:23 01/06/21 20:58 Milk Of Magnesia 30 Ml Oral.Susp PO 30 ml DAILY PRN Administration Constipation Multivitamins 1 tab 01/04/21 09:00 01/07/21 09:38 B-Complex With Vitamin C Tablet PO 1 tab DAILY SHMUEL Administration Nicotine 21 mg 01/02/21 09:30 01/07/21 09:38 Nicotine 21 Mg Patch.Td24 TRANSDERMA 21 mg DAILY SHMUEL Administration Nicotine Polacrilex 4 mg 12/31/20 10:23 01/06/21 20:24 Nicotine Polacrilex 4 Mg Lozenge BUCCAL 4 mg Q2H PRN Administration Nicotine Cravings Quetiapine Fumarate 25 mg 01/05/21 15:00 01/07/21 09:38 Quetiapine Fumarate 25 Mg Tablet PO 25 mg BID@0800,1500 SHMUEL Administration Quetiapine Fumarate 100 mg 01/05/21 21:00 01/07/21 00:23 Quetiapine Fumarate 100 Mg Tablet PO 100 mg BEDTIME MRX1 SHMUEL Administration Allergies Allergies Allergy/AdvReac Type Severity Reaction Status Date / Time No Known Allergies Allergy Verified 12/31/20 04:26 Assessment & Plan Assessment & Plan (1) Bipolar disorder with psychotic features: Status: Acute Code(s): F31.9 - Bipolar disorder, unspecified Assessment and Plan: Partial effect of medications will inc pm dose of seroquel for sleep [facility] Probably discharge 01/08. Observe for sx tonight. (2) Opioid use disorder, severe, dependence: Status: Acute Code(s): F11.20 - Opioid dependence, uncomplicated Assessment and Plan: -Suboxone -Clonidine prn watch for oversedation avoid benzodiazapines, will lower clonazepam dose now that not as manic (3) Cocaine use disorder, severe, dependence: Status: Acute Code(s): F14.20 - Cocaine dependence, uncomplicated (4) Cannabis use disorder, severe, dependence: Status: Acute Code(s): F12.20 - Cannabis dependence, uncomplicated Greater than 50% of the session was spent on counseling and/or coordination of care Reason for contiued inpatient stay Substantial Risk for: harm to self, harm to others, inability to function and rapid decompensation
[2021-01-07 16:00] VITALS: PULSE 8
[2021-01-07 16:30] VITALS: BP 102/56; PULSE 87; TEMP 36.4
[2021-01-08] MEDS: QUEtiapine Fumarate 100 MG TABLET PO (01:02)
[2021-01-08 08:44] LABS: Lithium 0.36 mmol/L (0.60-1.20)
[2021-01-08 08:57] LABS: Alanine Aminotransferase 84 U/L (0-40); Albumin Level 3.4 g/dL (3.5-5.0); Alkaline Phosphatase 66 U/L (39-117); Anion Gap 8 (12-20); Aspartate Amino Transferase 78 U/L (5-37); Bilirubin Total 0.3 mg/dL (0.0-1.0); Blood Urea Nitrogen 13 mg/dL (9-16); Carbon Dioxide 30 mmol/L (22-29); Chloride 106 mmol/L (96-108); Creatinine Clr Calc Pharmacy 127.8; Estimated Glomerular Filt Rate > 60; Glucose Random 86 mg/dL (60-115); Potassium 4.7 mmol/L (3.3-5.1); Sodium 139 mmol/L (135-145); Total Protein 6.5 g/dL (6.5-8.0)
[2021-01-08] MEDS: Buprenorphine/Naloxone 8/2 mg FILM 1 FILM SUBLINGUAL (09:05)
[2021-01-08] MEDS: Lidocaine 4 % Patch ADH..PATCH 1 PATCH TRANSDERMA (09:05)
[2021-01-08] MEDS: Nicotine 21 MG PATCH.TD24 TRANSDERMA (09:05)
[2021-01-08] MEDS: Ferrous Sulfate 324 MG TABLET.DR PO (09:06)
[2021-01-08] MEDS: Lithium Carbonate 300 MG CAPSULE PO (09:06)
[2021-01-08] MEDS: QUEtiapine Fumarate 25 MG TABLET PO ×2 (09:06→14:08)
[2021-01-08] MEDS: clonazePAM 0.5 MG TABLET PO ×2 (09:12→14:10)
--- NOTE | 2021-01-08 13:28 | HO.PSYCHPN ---
Subjective Subjective Date of Service: 01/08/21 Reason For Visit: Psychosis Subjective Notes: Conditional Voluntary Healthcare Proxy: No Medical Problems Affecting Mental Status: No Interim History: Planning discharge today. Will go to [facility], referrals made to [facility]. Will work with [facility] for primary care. Medication Compliance: Yes Side effects from medications: No Attending Groups: Intermittent Review of Systems Psychiatric: Reports no additional psychiatric complaints Mental Status Exam Mental Status Exam Patient Appearance: Appropriate Patient Orientation: Person, Place, Time and Situation Level of Consciousness: Alert Patient Behavior: Appropriate Mood Description: Constricted Affect Description: Constricted Patient Cognition Impaired: No Speech Pattern: Spontaneous Speech Memory Description: Intact Hallucinations: None Delusions: Not Present Thought Process: Intact Thought Content: positive for Intact Judgement: Good Diagnostics Vital Signs (24Hr): Vital Signs - 24 hr 01/07/21 16:30 Temperature 97.5 F Pulse Rate 87 Blood Pressure 102/56 L Body Mass Index 33.3 Labs Results: 12/31/20 07:26 01/08/21 08:19 Labs: Laboratory Results - last 48 hr 01/08/21 01/08/21 08:19 08:19 Sodium 139 Potassium 4.7 D Chloride 106 Carbon Dioxide 30 H Anion Gap 8 L BUN 13 Creatinine 0.74 Estim Creat Clear Calc 127.8 Estimated GFR > 60 Random Glucose 86 Calcium 9.0 D Total Bilirubin 0.3 AST 78 H ALT 84 H Alkaline Phosphatase 66 Total Protein 6.5 Albumin 3.4 L [place] 0.36 L Medications Medications Current Medications Generic Name Dose Route Start Last Admin Trade Name Freq PRN Reason Stop Dose Admin Acetaminophen 650 mg 01/01/21 19:23 Acetaminophen 325 Mg Tablet PO Q6H PRN Headache/Pain Mild Scale (1-3) Al Hydroxide/Mg Hydroxide 30 ml 01/01/21 19:23 Magnesium Hydrox/Alum Hydrox 30 Ml Oral.Susp PO Q6H PRN Heartburn/Nausea Buprenorphine/Naloxone 1 film 01/07/21 11:00 01/08/21 09:05 Buprenorphine/Naloxone 8/2 Mg Film SUBLINGUAL 1 film DAILY SHMUEL Administration Clonazepam 0.5 mg 01/06/21 20:26 01/08/21 09:12 Clonazepam 0.5 Mg Tablet PO 0.5 mg BID PRN Administration Restlessness Clonidine HCl 0.1 mg 01/03/21 14:41 01/04/21 13:36 Clonidine Hcl 0.1 Mg Tablet PO 0.1 mg BID PRN Administration withdrawal Protocol Ferrous Sulfate 324 mg 01/03/21 22:00 01/08/21 09:06 Ferrous Sulfate 324 Mg Tablet.Dr PO 324 mg DAILY SHMUEL Administration Haloperidol Lactate 5 mg 01/02/21 13:01 Haloperidol Lactate 10 Mg/5 Ml Oral.Conc PO BID PRN psychosis, agitation Hydroxyzine HCl 50 mg 12/31/20 22:51 01/06/21 20:58 Hydroxyzine Hcl 50 Mg Tablet PO 50 mg BID PRN Administration Anxiety Hydroxyzine HCl 25 mg 01/01/21 19:23 Hydroxyzine Hcl 25 Mg Tablet PO BEDTIME PRN Anxiety Lidocaine 1 patch 01/04/21 16:30 01/08/21 09:05 Lidocaine 4 % Patch Adh..Patch TRANSDERMA 1 patch DAILY SHMUEL Administration Protocol [place] Carbonate 300 mg 01/01/21 09:00 01/08/21 09:06 [place] Carbonate 300 Mg Capsule PO 300 mg BID SHMUEL Administration Magnesium Hydroxide 30 ml 01/01/21 19:23 01/06/21 20:58 Milk Of Magnesia 30 Ml Oral.Susp PO 30 ml DAILY PRN Administration Constipation Multivitamins 1 tab 01/04/21 09:00 01/08/21 09:06 B-Complex With Vitamin C Tablet PO 1 tab DAILY SHMUEL Administration Nicotine 21 mg 01/02/21 09:30 01/08/21 09:05 Nicotine 21 Mg Patch.Td24 TRANSDERMA 21 mg DAILY SHMUEL Administration Nicotine Polacrilex 4 mg 12/31/20 10:23 01/08/21 09:06 Nicotine Polacrilex 4 Mg Lozenge BUCCAL 4 mg Q2H PRN Administration Nicotine Cravings Quetiapine Fumarate 25 mg 01/05/21 15:00 01/08/21 09:06 Quetiapine Fumarate 25 Mg Tablet PO 25 mg BID@0800,1500 SHMUEL Administration Quetiapine Fumarate 100 mg 01/05/21 21:00 01/08/21 01:02 Quetiapine Fumarate 100 Mg Tablet PO 100 mg BEDTIME MRX1 SHMUEL Administration Allergies Allergies Allergy/AdvReac Type Severity Reaction Status Date / Time No Known Allergies Allergy Verified 12/31/20 04:26 Assessment & Plan Assessment & Plan (1) Bipolar disorder with psychotic features: Status: Acute Code(s): F31.9 - Bipolar disorder, unspecified Assessment and Plan: Plans discharge today. (2) Opioid use disorder, severe, dependence: Status: Acute Code(s): F11.20 - Opioid dependence, uncomplicated Assessment and Plan: Suboxone (3) Cocaine use disorder, severe, dependence: Status: Acute Code(s): F14.20 - Cocaine dependence, uncomplicated (4) Cannabis use disorder, severe, dependence: Status: Acute Code(s): F12.20 - Cannabis dependence, uncomplicated Greater than 50% of the session was spent on counseling and/or coordination of care Reason for contiued inpatient stay Substantial Risk for: stable for discharge
[2021-01-08 14:06] LABS: Haloperidol <1 ng/mL (5-15)
--- NOTE | 2021-01-08 16:39 | PM.PSYDC ---
DS: Providers Provider Date of Service: 01/08/21 Date of admission: 01/01/21 19:23 Primary care physician: Unknown Physician Consults: 01/02/21 13:02 Addiction Medicine Routine Consulting Provider: Susie Mendes Reason for consultation: Opiate, Cocaine Use Disorder; pt would like to initiate Suboxone Has provider been notified: No DS: Diagnosis Discharge Diagnosis (1) Bipolar disorder with psychotic features: Status: Acute Problem details: 55 yo male, presented to police with SI, HI. Reports off meds for several months and using Heroin, 1 bundle daily. Reports by history, he did well on Suboxone and asks for assistance in re-establishing med regime of [place], Klonopin, Prazosin, Hydroxyzine, Trazodone along with Suboxone therapy. (2) Opioid use disorder, severe, dependence: Status: Acute (3) Cocaine use disorder, severe, dependence: Status: Acute (4) Cannabis use disorder, severe, dependence: Status: Acute DS: Medications Discharge Medications Home Medications: Previous Rx's Medication Instructions Recorded B-complex with vitamin C 1 tab PO DAILY #30 tab 01/08/21 clonazepam 0.5 mg PO BID PRN #14 tab 01/08/21 ferrous sulfate 324 mg PO DAILY #30 tab 01/08/21 hydroxyzine HCl 50 mg PO BID PRN #14 tab 01/08/21 lithium carbonate 300 mg PO BID #14 cap 01/08/21 naloxone [Narcan] 4 mg INTRANASAL Q2M PRN #2 ea 01/08/21 quetiapine 25 mg PO BID@0800,1500 #14 tab 01/08/21 quetiapine 100 mg PO BEDTIME MRX1 #7 tab 01/08/21 Discharge Plan Discharge Anticipated Discharge Date/Time: 01/08/21 16:00 Patient Disposition: Residential Discharge Diagnosis: Bipolar Disorder with Psychotic Features Cannabis Use Disorder Stimulant Use Disorder Opioid Use Disorder-currently on Suboxone therapy Referrals: [facility] [Other] - 1 Week (The long term is open 09/02. If you are unable to contact your psychiatrist, please speak to case management at the long term and they can refer you to therapy and psychiatry through [facility]) [facility] [Other] - 1 Week (Please call the above number if you are interested in outpatient therapy and psychiatry and cannot get in contact with your current providers) Physician,Unknown [Primary Care Provider] - 1 Week Discharge Medications: New quetiapine 25 mg Tablet 25 mg PO BID@0800,1500 Qty: 14 RF: 4 hydroxyzine HCl 50 mg Tablet 50 mg PO BID PRN (Reason: Anxiety) Qty: 14 RF: 4 quetiapine 100 mg Tablet 100 mg PO BEDTIME MRX1 Qty: 7 RF: 4 lithium carbonate 300 mg Capsule 300 mg PO BID Qty: 14 RF: 4 B-complex with vitamin C Tablet 1 tab PO DAILY Qty: 30 RF: 0 ferrous sulfate 324 mg (65 mg iron) Tablet,Delayed Release (Dr/Ec) 324 mg PO DAILY Qty: 30 RF: 0 clonazepam 0.5 mg Tablet 0.5 mg PO BID PRN (Reason: Restlessness) Qty: 14 RF: 4 Narcan 4 mg/actuation spray,non-aerosol 4 mg intranasal Q2M PRN (Reason: opioid overdose) Qty: 2 RF: 0 Discontinued prazosin 1 mg Capsule 3 mg PO BEDTIME RF: 0 hydroxyzine pamoate 50 mg Capsule 50 mg PO BID PRN (Reason: Anxiety) RF: 0 trazodone 100 mg Tablet 100 mg PO BEDTIME RF: 0 lithium carbonate 300 mg Capsule 300 mg PO BID RF: 0 Discharge Orders: Discharge Order (Routine); Ordered 01/08/21 Ordered By: Milagros Bates Diet: advance to usual diet Activity on Discharge: As tolerated Stand Alone Forms: Patient Portal Discharge page Care Plan Goals: Mood Stabilization Remain free of substances Health Concerns: Bipolar Disorder with Psychosis Opioid Use Disorder Stimulant Use Disorder-Cocaine Cannabis Use Disorder Plan of Treatment: Take medications as directed Attend follow up appointments Work with the team at the long term to address your housing goals Assessment: Alert, non-psychotic, non-suicidal Discharge Date/Time: 01/08/21 15:42 Mental Status Exam Mental Status Exam Patient Appearance: Appropriate Patient Orientation: Person, Place, Time and Situation Level of Consciousness: Alert Patient Behavior: Appropriate Mood Description: Constricted Affect Description: Constricted Patient Cognition Impaired: No Ability to Follow Directions: Good Speech Pattern: Spontaneous Speech Memory Description: Intact Hallucinations: None Delusions: Not Present Thought Process: Intact Thought Content: positive for Intact Judgement: Good Data Data Completed and Pending Completed studies during hospitalization [Text1]: 01/01/21 01/03/21 01/03/21 22:06 08:04 08:05 Sodium Potassium Chloride Carbon Dioxide Anion Gap BUN Creatinine Estim Creat Clear Calc Estimated GFR Random Glucose Estimat Average Glucose Hemoglobin A1c % Calcium Magnesium 2.0 Iron 32 L TIBC 318 % Saturation 10 L Unsat Iron Binding 286 Total Bilirubin AST ALT Alkaline Phosphatase Ammonia 38 Total Protein Albumin Triglycerides 59 Cholesterol 154 LDL Cholesterol, Calc 109 HDL Cholesterol 34 Amylase 49 Lipase 15 Vitamin B12 Folate TSH 0.29 L Haloperidol <1 L [place] 01/03/21 01/03/21 01/08/21 08:05 08:05 08:19 Sodium 139 Potassium 4.7 D Chloride 106 Carbon Dioxide 30 H Anion Gap 8 L BUN 13 Creatinine 0.74 Estim Creat Clear Calc 127.8 Estimated GFR > 60 Random Glucose 86 Estimat Average Glucose 100 Hemoglobin A1c % 5.1 Calcium 9.0 D Magnesium Iron TIBC % Saturation Unsat Iron Binding Total Bilirubin 0.3 AST 78 H ALT 84 H Alkaline Phosphatase 66 Ammonia Total Protein 6.5 Albumin 3.4 L Triglycerides Cholesterol LDL Cholesterol, Calc HDL Cholesterol Amylase Lipase Vitamin B12 245 Folate 8.2 TSH Haloperidol [place] 01/08/21 08:19 Sodium Potassium Chloride Carbon Dioxide Anion Gap BUN Creatinine Estim Creat Clear Calc Estimated GFR Random Glucose Estimat Average Glucose Hemoglobin A1c % Calcium Magnesium Iron TIBC % Saturation Unsat Iron Binding Total Bilirubin AST ALT Alkaline Phosphatase Ammonia Total Protein Albumin Triglycerides Cholesterol LDL Cholesterol, Calc HDL Cholesterol Amylase Lipase Vitamin B12 Folate TSH Haloperidol [place] 0.36 L DS: Summary Hospital Course Hospital Course: Admitted via conditional voluntary. Regime of [place], Seroquel, Klonopin Suboxone re-started. Pt's symptoms decreased and he regained mood and behavioral control. He accepted referral to [facility] for out patient psychiatric care and will attend [facility] where he will obtain ongoing treatment with Suboxone. Time spent discussing smoking cessation with patient: 3 to 10 minutes Status at Discharge Cognitive/behavioral status at discharge: alert, non-psychotic, non-suicidal, mood constricted Functional status at discharge: independent ambulation Overall status at discharge: patient is back to baseline Time Spent with Patient Time attestation: Total time spent providing and/or coordinating discharge services: 25 Time spent: Less than 30 minutes
== END 2021-01-08 15:42 | disposition home or self-care (01) | DRG 753 ==
LOC: HO.ED 09:07 → HO.PM5 01-01 20:06
PROVIDERS: Physician Assistant; Admitting Provider Psychiatry & Neurology Psychiatry; Emergency Provider Emergency Medicine Emergency Medical Services; Visit Provider Clinical Nurse Specialist Psychiatric/Mental Health, Adult
DX: F31.9 Bipolar disorder, unspecified (principal); R45.851 Suicidal ideations; F11.20 Opioid dependence, uncomplicated; R45.850 Homicidal ideations; F14.20 Cocaine dependence, uncomplicated; F12.20 Cannabis dependence, uncomplicated; Z59.0 Homelessness; Z20.822 Contact with and (suspected) exposure to COVID-19; Z79.899 Other long term (current) drug therapy
CPT/HCPCS: 36415; 80048; 80053; 80061; 80076; 80173; 80178; 80307; 82077; 82140; 82150; 82607; 82746; 83036; 83540; 83690; 83735; 84443; 85025; 87635; 93005; 99285; J2060

== ENCOUNTER 2021-02-01 02:17 | Emergency (ER) | payer OTHER, SELFPAY ==
[2021-02-01 02:30] VITALS: BP 134/48; BP 134/68; PULSE 122; RESP 15; TEMP 37; O2SAT 98; BMI 24.5
--- NOTE | 2021-02-01 03:07 | ED.ALCOHOL ---
HPI - Alcohol General Chief Complaint: ETOH/Substance Use Stated Complaint: ETOH INTOXICATION Time Seen by Provider: 02/01/21 03:06 Source: patient Mode of arrival: EMS History of Present Illness HPI narrative: 55M brought in by EMS after he was found at [employer] parking lot dancing and singing. Patient denies alcohol use and states he only took Suboxone and as per EMS patient took PCP. Patient has no acute complaints at this time and denies any shortness of breath or chest pain. Patient denies any suicidal homicidal ideation. Related Data Previous Rx's Medication Instructions Recorded B-complex with vitamin C 1 tab PO DAILY #30 tab 01/08/21 clonazepam 0.5 mg PO BID PRN #14 tab 01/08/21 ferrous sulfate 324 mg PO DAILY #30 tab 01/08/21 hydroxyzine HCl 50 mg PO BID PRN #14 tab 01/08/21 lithium carbonate 300 mg PO BID #14 cap 01/08/21 naloxone [Narcan] 4 mg INTRANASAL Q2M PRN #2 ea 01/08/21 quetiapine 25 mg PO BID@0800,1500 #14 tab 01/08/21 quetiapine 100 mg PO BEDTIME MRX1 #7 tab 01/08/21 Allergies Allergy/AdvReac Type Severity Reaction Status Date / Time No Known Allergies Allergy Verified 12/31/20 04:26 Review of Systems Review of Systems: Pertinent positives and negatives as stated in HPI 10 point review of systems is otherwise negative. [facility] Past Medical History Source: nursing notes reviewed Medical History Bipolar disorder in remission Bipolar disorder with psychotic features Bipolar I disorder Cannabis use disorder, severe, dependence Cocaine use disorder, severe, dependence DM2 (diabetes mellitus, type 2) Hepatitis C Opioid use disorder, severe, dependence Social History Social History Household Members: None Housing: Homeless Do you presently have visiting nurse or other home services: No Alcohol intake: unknown Patient Tobacco Use Status: Current everyday Tobacco user Tobacco use type: Cigarette Cigarette Packs Per Day: 2 Cigarettes Per Day: 40.0 Years Smoked: 41 e-Cigarette/Vaping Use: Never Used Second Hand Smoke Exposure: No Use of substances other than those prescribed or required for medical reasons: Yes Substance Use Type: Crack/Cocaine Advance Directives: No service: No Sexual orientation: Straight/Heterosexual Physical Exam Vital Signs: Vital Signs: Last Vital Signs Temp 98.6 F 02/01/21 06:00 Pulse 74 02/01/21 06:00 Resp 15 02/01/21 06:00 BP 105/56 L 02/01/21 06:00 Pulse Ox 99 02/01/21 06:00 Body Mass Index 24.5 VITAL SIGNS: Reviewed. GENERAL: Well developed, well nourished, in no acute distress. HEAD: Normocephalic/atraumatic EYES: PERRLA, EOMI OROPHARYNX: no oral lesions noted, posterior pharynx clear LUNGS: Normal breath sounds. No adventitious sounds or accessory muscle use. SpO2<99> CARDIOVASCULAR: Regular rate and rhythm without noted murmurs ABDOMEN: Soft, non-tender, non-distended with bowel sounds. SKIN: Inspection of the skin reveals no rashes NEUROLOGIC: Alert and oriented x 4. Strength and sensation to light touch were grossly intact x 4. PSYCH: Patient appears to be under the influence Course Course Course Narrative: 55-year-old male with history and clinical presentation consistent of likely substance use and will be monitored here in the ER and re-evaluated for clinical sobriety prior to discharge. Discharge Plan Discharge Clinical Impression: Substance use Patient Disposition: Home, Self-Care Instructions: Polysubstance Abuse (ED) Additional Instructions: Returns the ER for acute worsening of symptoms. Prescriptions: No Action quetiapine 25 mg Tablet 25 mg PO BID@0800,1500 Qty: 14 RF: 4 hydroxyzine HCl 50 mg Tablet 50 mg PO BID PRN (Reason: Anxiety) Qty: 14 RF: 4 quetiapine 100 mg Tablet 100 mg PO BEDTIME MRX1 Qty: 7 RF: 4 lithium carbonate 300 mg Capsule 300 mg PO BID Qty: 14 RF: 4 B-complex with vitamin C Tablet 1 tab PO DAILY Qty: 30 RF: 0 ferrous sulfate 324 mg (65 mg iron) Tablet,Delayed Release (Dr/Ec) 324 mg PO DAILY Qty: 30 RF: 0 clonazepam 0.5 mg Tablet 0.5 mg PO BID PRN (Reason: Restlessness) Qty: 14 RF: 4 Narcan 4 mg/actuation spray,non-aerosol 4 mg intranasal Q2M PRN (Reason: opioid overdose) Qty: 2 RF: 0 Referrals: Physician,None [Primary Care Provider] - 2 days
[2021-02-01 04:00] VITALS: BP 101/53; PULSE 91; RESP 15; O2SAT 99
[2021-02-01 06:00] VITALS: BP 105/56; PULSE 74; RESP 15; TEMP 37; O2SAT 99
--- NOTE | 2021-02-01 07:37 | PC.NURSE ---
report taken from varsha lu pt lying in hallway stretcher, appears to be sleeping w rr even/unlabored. pt reportedly here for unknown substance use, pt appears calm and cooperative att. wctm for dc needs.
--- NOTE | 2021-02-01 09:13 | PC.NURSE ---
pt ambulating steady in [place], asking about breakfast and dc paper work. requiring redirection frequently regarding wearing mask. pt understanding and signing dc paper work, will leave once finished w breakfast.
== END 2021-02-01 09:24 | disposition home or self-care (01) ==
PROVIDERS: Emergency Provider Student in an Organized Health Care Education/Training Program
DX: F19.90 Other psychoactive substance use, unspecified, uncomplicated (principal); F11.20 Opioid dependence, uncomplicated; Z59.0 Homelessness
CPT/HCPCS: 99285

== ENCOUNTER 2021-02-08 03:39 | Emergency (ER) | payer OTHER, SELFPAY ==
[2021-02-08 03:45] VITALS: BP 115/76; PULSE 109; RESP 17; TEMP 37.4; O2SAT 92; BMI 31.7
[2021-02-08 04:10] VITALS: BP 115/76; PULSE 109; RESP 17; TEMP 37.4; O2SAT 92
[2021-02-08 04:27] LABS: Glucose Urine UA NEG (NEG); Leukocyte Esterase Urine NEG (NEG); Nitrite Urine NEG (NEG); Specific Gravity - Urine >= 1.030 (1.005-1.025); Urine Blood NEG (NEG); Urine Ketones NEG (NEG); Urine Protein NEG (NEG-TRACE)
[2021-02-08 04:28] LABS: Appearance Urine CLEAR; Color Urine YELLOW
[2021-02-08 04:31] LABS: Bacteria Urine 1+ /LPF; Squamous Epithelial Cell Urine 1+ /LPF
[2021-02-08 04:40] LABS: COVID-19 Test Negative (Negative)
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
[2021-02-08 04:45] LABS: Amphetamine Screen Urine Not Detected (Not Detect); Barbiturates, Urine Not Detected (Not Detect); Benzodiazepines Screen Urine Not Detected (Not Detect); Cannabinoid Screen Urine POSITIVE (Not Detect); Cocaine Screen Urine POSITIVE (Not Detect); Opiate Screen Urine POSITIVE (Not Detect); Phencyclidine Screen Urine Not Detected (Not Detect)
--- NOTE | 2021-02-08 06:45 | PC.NURSE ---
Patient slept well, no distress observed/reported, awaiting N evaluation, med rec completed/pending provider's approval, will continue to monitor.
[2021-02-08 07:17] LABS: Glucose, Whole Blood 98 mg/dL (60-115)
--- NOTE | 2021-02-08 07:25 | PC.NURSE ---
patient [id number] to remain at rest at present, respiratins are even and unlabored. appears in no distress
--- NOTE | 2021-02-08 08:28 | ECG_ITS ---
Test Reason : MEDICAL CLEARANCE Blood Pressure : / mmHG Vent. Rate : 082 BPM Atrial Rate : 082 BPM P-R Int : 166 ms QRS Dur : 090 ms QT Int : 396 ms P-R-T Axes : 066 055 044 degrees QTc Int : 462 ms Normal sinus rhythm Possible Left atrial enlargement Borderline ECG When compared with ECG of 07-JAN-2021 14:06, No significant change was found Referred By: Edilma Cole Electronically Signed By:CHRISTIANA WEBBER MD
[2021-02-08 08:44] VITALS: BP 106/57; PULSE 81; RESP 15; TEMP 36.9; O2SAT 95
[2021-02-08] MEDS: Lithium Carbonate 300 MG CAPSULE PO ×2 (09:03→21:14)
[2021-02-08] MEDS: QUEtiapine Fumarate 25 MG TABLET PO ×2 (09:04→21:14)
[2021-02-08] MEDS: Ferrous Sulfate 324 MG TABLET.DR PO (09:04)
[2021-02-08 09:23] LABS: MANUAL DIFF FLAG NO
[2021-02-08 09:25] LABS: Basophils Percent Auto 0.2 % (0-2); Eosinophils Absolute Auto 0.1 X10*3/uL (0.0-0.4); Eosinophils Percent Auto 0.7 % (0-4); Hematocrit 38.1 % (42-52); Hemoglobin 12.2 g/dl (14.0-18.0); Imm Gran Abs Auto 0.03 X10*3/uL (0.00-0.03); Imm Gran Pct Auto 0.3 % (0.0-0.4); Lymphocytes Absolute Auto 1.9 X10*3/uL (1.2-4.9); Lymphocytes Percent Auto 16.2 % (20-40); Mean Corpuscular Hemoglobin 28.2 pg (27.0-33.0); Mean Platelet Volume 10.4 fL (9.4-12.4); Monocytes Absolute Auto 1.1 X10*3/uL (0.1-1.2); Monocytes Percent Auto 9.6 % (2-11); Neutrophils Absolute Auto 8.6 X10*3/uL (2.0-8.3); Platelet Count 218 X10*3/uL (160-400); Red Blood Count 4.33 X10*6/uL (4.60-5.80); White Blood Count 11.8 X10*3/uL (4.8-10.8)
[2021-02-08 09:53] LABS: Alanine Aminotransferase 31 U/L (0-40); Albumin Level 3.9 g/dL (3.5-5.0); Alkaline Phosphatase 71 U/L (39-117); Anion Gap 10 (12-20); Aspartate Amino Transferase 49 U/L (5-37); Blood Urea Nitrogen 8 mg/dL (9-16); Calcium 8.6 mg/dL (8.4-10.2); Carbon Dioxide 26 mmol/L (22-29); Chloride 105 mmol/L (96-108); Creatinine Clr Calc Pharmacy 113.5; Estimated Glomerular Filt Rate > 60; Glucose Random 121 mg/dL (60-115); Magnesium 2.3 mg/dL (1.6-2.6); Potassium 3.8 mmol/L (3.3-5.1); Sodium 137 mmol/L (135-145); Total Protein 7.2 g/dL (6.5-8.0)
--- NOTE | 2021-02-08 14:30 | MHC.RECOVRN ---
T/w met with pt in 6 after pt expressed interest in Suboxone to pod RN. Pt presents as tangential, poor historian. Pt reports last use yesterday, weed laced with heroin and cocaine. Prior to that, pt reports last use was years ago. Pt is not currently experiencing any withdrawal symptoms. Pt states I feel great. At times during interview, pt falling asleep. Able to wake to voice. Pt is transferring to inpatient later today, interview deferred until pt can adequately engage. Case discussed with Susie Mendes APRN.
[2021-02-08 16:39] VITALS: RESP 16
[2021-02-08] MEDS: QUEtiapine Fumarate 100 MG TABLET PO (21:14)
[2021-02-08 22:00] VITALS: RESP 16
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
[2021-02-09 03:03] VITALS: BP 128/78; PULSE 88; RESP 18; TEMP 36.6; O2SAT 99
[2021-02-09 07:59] VITALS: BP 110/70; PULSE 79; RESP 14; TEMP 36.9; O2SAT 95
--- NOTE | 2021-02-09 09:48 | PC.NURSE ---
Pt requesting to take a shower.
[2021-02-09] MEDS: QUEtiapine Fumarate 25 MG TABLET PO (10:14)
[2021-02-09] MEDS: Lithium Carbonate 300 MG CAPSULE PO (10:14)
[2021-02-09] MEDS: Ferrous Sulfate 324 MG TABLET.DR PO (10:15)
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
[2021-02-09] MEDS: Buprenorphine/Naloxone 4/1 mg FILM 1 FILM SUBLINGUAL (13:08)
== END 2021-02-09 13:48 | disposition home or self-care (01) ==
PROVIDERS: Physician Assistant Medical; Emergency Provider Emergency Medicine
DX: F33.1 Major depressive disorder, recurrent, moderate (principal); R45.851 Suicidal ideations; F14.20 Cocaine dependence, uncomplicated; F12.20 Cannabis dependence, uncomplicated; E11.9 Type 2 diabetes mellitus without complications; F11.20 Opioid dependence, uncomplicated; Z20.822 Contact with and (suspected) exposure to COVID-19; Z79.899 Other long term (current) drug therapy; Z71.51 Drug abuse counseling and surveillance of drug abuser; F17.210 Nicotine dependence, cigarettes, uncomplicated; Z71.6 Tobacco abuse counseling; Z79.4 Long term (current) use of insulin
CPT/HCPCS: 36415; 80053; 80307; 81001; 82947; 83735; 85025; 87635; 93005; 99285

== ENCOUNTER 2021-02-10 04:41 | Emergency (ER) | payer OTHER, SELFPAY ==
[2021-02-10 04:45] VITALS: BP 137/76; PULSE 108; RESP 17; TEMP 36.8; O2SAT 94; BMI 33.3
--- NOTE | 2021-02-10 04:57 | ED_ITS ---
HPI - Psych General Chief Complaint: Psychiatric Symptoms Stated Complaint: SI Time Seen by Provider: 02/10/21 04:47 Source: patient and EMS Mode of arrival: EMS Limitations: other (Recently used heroin/cocaine) History of Present Illness HPI Narrative: Patient is brought to the emergency room by EMS. Patient states that he [facility] and admits to using heroin and cocaine. Per EMS, patient has stated that he is homicidal, states he wants to kill people. When asked to the patient, patient admits to it, but has no one specific in mind. Related Data Home Medications Medication Instructions Recorded Confirmed clonazepam 1 tab PO BID PRN 02/08/21 02/08/21 ferrous sulfate 1 tab PO DAILY 02/08/21 02/08/21 hydroxyzine HCl 1 tab PO BID PRN 02/08/21 02/08/21 lithium carbonate 1 cap PO BID 02/08/21 02/08/21 quetiapine 1 tab PO BEDTIME 02/08/21 02/08/21 quetiapine 1 tab PO BID 02/08/21 02/08/21 vitamin B comp and C no.3 [B 1 cap PO DAILY 02/08/21 02/08/21 Complex Plus Vitamin C] Previous Rx's Medication Instructions Recorded buprenorphine-naloxone [Suboxone] 1 film SUBLINGUAL DAILY #3 ea 02/09/21 Allergies Allergy/AdvReac Type Severity Reaction Status Date / Time No Known Allergies Allergy Verified 12/31/20 04:26 Review of Systems Review of Systems: Constitutional : No Weight loss, No Fever, No Chills, No Night Sweats, No Fatigue, No Malaise ENT/Mouth : No Hearing loss, No Ear Pain, No Nasal Congestion, No Sinus Pain, No Hoarseness, No sore throat, No Rhinorrhea, No Swallowing Difficulty Eyes: No Eye Pain, No Swelling, No Redness, No Foreign Body, No Discharge, No Vision Changes Cardiovascular : No Chest Pain, No SOB, No Dyspnea on Exertion, No Orthopnea, No Edema, No Palpitations Respiratory : No Cough, No Sputum, No Wheezing, No Smoke Exposure, No Dyspnea Gastrointestinal : No Nausea, No Vomiting, No Diarrhea, No Constipation, No abdominal Pain, No Hematochezia, No Melena Genitourinary : no irregular bleeding, No Dysuria, No Urinary Frequency, No Hematuria, No Urinary Incontinence, No Urgency, No Flank Pain, No Urinary Flow Changes, No Hesitancy Musculoskeletal : No joint pain, No Myalgias, No Joint Swelling Skin : No Skin Lesions, No rash Neuro : No Weakness, No Numbness, No Paresthesias, No Loss of Consciousness, No Dizziness, No Headache Psych : No Anxiety/Panic, No Depression, complaining of homicidal patient, No S ocial Issues, Heme/Lymph: No Bruising, No Bleeding,No Lymphadenopathy Endocrine : No Polyuria, No Polydipsia, No Temperature Intolerance [facility] Past Medical History Medical History Bipolar disorder in remission Bipolar disorder with psychotic features Bipolar I disorder Cannabis use disorder, severe, dependence Cocaine use disorder, severe, dependence DM2 (diabetes mellitus, type 2) Hepatitis C Opioid use disorder, severe, dependence Social History Social History Household Members: None Housing: Homeless Do you presently have visiting nurse or other home services: No Alcohol intake: unknown Patient Tobacco Use Status: Current everyday Tobacco user Tobacco use type: Cigarette Cigarette Packs Per Day: 2 Cigarettes Per Day: 40.0 Years Smoked: 41 e-Cigarette/Vaping Use: Never Used Second Hand Smoke Exposure: No Substance Use Type: Crack/Cocaine Advance Directives: No Advance Directives Information Provided: Yes service: No Sexual orientation: Straight/Heterosexual Physical Exam Vital Signs: Vital Signs: Last Vital Signs Temp 98.2 F 02/10/21 04:45 Pulse 108 H 02/10/21 04:45 Resp 17 02/10/21 04:45 BP 137/76 02/10/21 04:45 Pulse Ox 94 02/10/21 04:45 Body Mass Index 33.3 Appearance: Alert. Oriented X3. No acute distress. Eyes: Pupils equal, round and reactive to light. ENT: Pharynx normal. Neck: Normal inspection. Neck supple. No lymph nodes noted. No crepitus CVS: Normal heart rate and rhythm. Pulses normal. Normal S1 and S2 Respiratory: No respiratory distress. Breath sounds normal. No Wheezing. No rales Abdomen: Soft and nontender. No rigidity. No distention. good BS x4 Skin: Skin warm and dry. Normal skin color. Normal skin turgor. Extremities: No lower extremity edema. No lower extremity edema. No Lacerations. No Rash Neuro: Oriented X 3. No motor deficit. No sensory deficit. Moving all extermities. No slurred speech. Psych: Cranial nerves 2-12 grossly intact, no focal deficits, steady gait. Patient is under the influence of cocaine/opiates Course Course Course Narrative: Patient was seen here 2 days ago. This time patient's new complaint is homicidal ideation. Patient is under the influence of heroin and cocaine. [facility] pending. Sign-out given to Dr. Tavares At this time, 05:00, physician observation is started, patient is stable, waiting to be seen by [facility] Discharge Plan Discharge Prescriptions: No Action clonazepam 0.5 mg tablet 1 tab PO BID PRN (Reason: Anxiety) RF: 0 hydroxyzine HCl 50 mg tablet 1 tab PO BID PRN (Reason: anxiety) RF: 0 lithium carbonate 300 mg capsule 1 cap PO BID RF: 0 B Complex Plus Vitamin C [id number] mg capsule 1 cap PO DAILY RF: 0 ferrous sulfate 324 mg (65 mg iron) tablet,delayed release (DR/EC) 1 tab PO DAILY RF: 0 quetiapine 25 mg tablet 1 tab PO BID RF: 0 quetiapine 100 mg tablet 1 tab PO BEDTIME RF: 0 buprenorphine-naloxone [Suboxone] 8-2 mg film 1 film sublingual DAILY Qty: 3 RF: 0
[2021-02-10 05:26] LABS: COVID-19 Test Negative (Negative); IDNOW Serial# 9DD0AD1C
--- NOTE | 2021-02-10 06:03 | PC.NURSE ---
Patient appears sleeping at this time, no distress observed/reported, pending urine sample for SHEA, med rec completed/pending Sep update, [facility] referral completed via smart-sheet, called and spoke with Alycya/confirmed receipt of referral, clinician is on the way to evaluate the patient, will continue to monitor.
--- NOTE | 2021-02-10 06:38 | PC.NURSE ---
Patient with [facility], engaged and appropriate
== END 2021-02-10 08:07 | disposition home or self-care (01) ==
PROVIDERS: Emergency Provider Emergency Medicine
DX: R45.850 Homicidal ideations (principal); F31.9 Bipolar disorder, unspecified; F11.20 Opioid dependence, uncomplicated; F14.20 Cocaine dependence, uncomplicated; F12.20 Cannabis dependence, uncomplicated; Z20.822 Contact with and (suspected) exposure to COVID-19; Z79.899 Other long term (current) drug therapy; F17.210 Nicotine dependence, cigarettes, uncomplicated
CPT/HCPCS: 36415; 87635; 99284

== ENCOUNTER 2021-02-18 20:35 | Emergency (ER) | payer OTHER, SELFPAY ==
[2021-02-18 20:42] VITALS: BP 147/66; PULSE 102; RESP 18; TEMP 37.1; O2SAT 98; BMI 30.7
[2021-02-18 21:17] LABS: COVID-19 Test Negative (Negative)
--- NOTE | 2021-02-19 00:27 | ED_ITS ---
HPI - Psych General Chief Complaint: Psychiatric Symptoms Stated Complaint: crisis etoh Time Seen by Provider: 02/18/21 23:03 Source: patient Mode of arrival: ambulatory Limitations: no limitations History of Present Illness HPI Narrative: Patient presents to the ED stating he would like to speak to [place]. Patient will not go into detail why he would like to speak to [place]. Patient denies any suicidal/homicidal ideation Related Data Home Medications Medication Instructions Recorded Confirmed buprenorphine 8 mg-naloxone 2 mg 1 strip SUBLINGUAL DAILY 02/18/21 02/18/21 sublingual film clonazepam 0.5 mg tablet 1 tab PO BID PRN 02/18/21 02/18/21 hydroxyzine pamoate 50 mg capsule 1 cap PO BID PRN 02/18/21 02/18/21 lithium carbonate 300 mg tablet 1 tab PO BID 02/18/21 02/18/21 quetiapine 100 mg tablet 1 tab PO BEDTIME 02/18/21 02/18/21 trazodone 100 mg tablet 1 tab PO BEDTIME 02/18/21 02/18/21 Allergies Allergy/AdvReac Type Severity Reaction Status Date / Time No Known Allergies Allergy Verified 12/31/20 04:26 Review of Systems Review of Systems: Yes all other systems are reviewed and are negative and unobtainable due to endotracheal tube Constitutional: Constitutional: Reports as per HPI Eyes: Eyes: Reports as per HPI and Reports no additional eye complaints ENT: Reports system reviewed and no additional complaints, except as documented and Reports as per HPI Cardiovascular: Cardiovascular: Reports as per HPI and Reports no additional cardiovascular complaints Gastrointestinal: Gastrointestinal: Reports as per HPI and Reports no additional gastrointestinal complaints Genitourinary: Genitourinary: Reports no additional male genitourinary complaints and Reports as per HPI Musculoskeletal: Musculoskeletal: Reports no additional musculoskeletal complaints and Reports as per HPI Neurologic: Reports system reviewed and no additional complaints, except as documented and Reports as per HPI Psychiatric: Psychiatric: Reports no additional psychiatric complaints and Reports as per HPI PMFSH Past Medical History Medical History Bipolar disorder in remission Bipolar disorder with psychotic features Bipolar I disorder Cannabis use disorder, severe, dependence Cocaine use disorder, severe, dependence DM2 (diabetes mellitus, type 2) Hepatitis C Opioid use disorder, severe, dependence Social History Social History Household Members: None Housing: Homeless Do you presently have visiting nurse or other home services: No Alcohol intake: unknown Patient Tobacco Use Status: Current everyday Tobacco user Tobacco use type: Cigarette Cigarette Packs Per Day: 2 Cigarettes Per Day: 40.0 Years Smoked: 41 e-Cigarette/Vaping Use: Never Used Second Hand Smoke Exposure: No Substance Use Type: Crack/Cocaine Advance Directives: No service: No Sexual orientation: Straight/Heterosexual Physical Exam Vital Signs: Vital Signs: Last Vital Signs Temp 98.7 F 02/18/21 20:42 Pulse 102 H 02/18/21 20:42 Resp 18 02/18/21 20:42 BP 147/66 H 02/18/21 20:42 Pulse Ox 98 02/18/21 20:42 Body Mass Index 30.7 Const: General: cooperative, healthy appearing, comfortable, no acute distress, well developed, alert, awake and Physically active Orientation/consciousness: patient oriented x3 HENMT: Head: Yes normal to inspection, Yes No palpable skull fracture present, Yes normocephalic, Yes atraumatic and No abrasion Eyes: General: appearance normal, both eyes and all related structures Neck: Neck: Yes normal visual inspection, Yes full ROM, Yes no lympha denopathy, Yes no meningeal signs, Yes trachea midline, Yes supple and No tender Chest: Chest palpation & inspection: normal inspection of the chest and normal palpation of entire chest wall Resp: Effort & Inspection: normal respiratory effort and able to speak in complete sentences Auscultation: clear to auscultation bilaterally Cardio: Jugular venous distension: no JVD Heart sounds: S1 normal heart sound present and S2 normal heart sound present GI: Inspection: Yes normal to inspection and No abdominal wall ecchymosis Palpation (GI): Soft to palpation, not firm, nontender, no guarding and not rigid : General: No CVA tenderness and Yes no CVA tenderness Back/Spine/Pelvis: Back: no CVA tenderness, No CVA tenderness and No back tenderness Skin: General skin exam: no rashes or lesions noted and abnormal elasticity Neuro: General: patient oriented x3, gait normal, no meningeal signs and CN's II-XI intact bilaterally Cranial nerves: Yes CN's II-XII intact bilaterally Extrem: General: Yes normal to inspection and Yes full ROM Psych: Appearance: grossly normal, well kempt and not disheveled Course Course Course Narrative: Patient will have COVID swab and be [facility]. Reevaluation(s) Reevaluation #1: Patient awaiting [facility] evaluation Time: 00:34 MDM - Psych Lab Data Labs: Lab Results 02/18/21 Range/Units 20:56 COVID-19 (JAMMIE) Negative (Negative) COVID-19 Clin Com See Note Discharge Plan Discharge Clinical Impression: Bipolar I disorder Prescriptions: No Action clonazepam 0.5 mg tablet 1 tab PO BID PRN (Reason: Anxiety) RF: 0 hydroxyzine pamoate 50 mg capsule 1 cap PO BID PRN (Reason: anxiety) RF: 0 quetiapine 100 mg tablet 1 tab PO BEDTIME RF: 0 trazodone 100 mg tablet 1 tab PO BEDTIME RF: 0 lithium carbonate 300 mg tablet 1 tab PO BID RF: 0 buprenorphine-naloxone 8-2 mg film 1 strip sublingual DAILY RF: 0
--- NOTE | 2021-02-19 05:52 | PC.NURSE ---
Patient slept through the night, cooperative with [place] clinician, disposition is to d/c to the community retirement then f/u with [facility] for housing/SSI, patient and provider both in agreement to the plan, [place] will arrange ride by sending Cab to pick him up at 0700, no distress observed/reported at this time, will continue to monitor.
== END 2021-02-19 07:13 | disposition home or self-care (01) ==
PROVIDERS: Physician Assistant; Emergency Provider Student in an Organized Health Care Education/Training Program
DX: F31.9 Bipolar disorder, unspecified (principal); Z20.822 Contact with and (suspected) exposure to COVID-19; F14.20 Cocaine dependence, uncomplicated; F11.20 Opioid dependence, uncomplicated; F12.20 Cannabis dependence, uncomplicated
CPT/HCPCS: 36415; 87635; 99283; 99284

== ENCOUNTER 2021-02-19 21:25 | Emergency (ER) | payer OTHER, SELFPAY ==
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
[2021-02-19 21:35] VITALS: BP 106/76; PULSE 100; RESP 16; TEMP 36.1; O2SAT 98; BMI 29.0
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
== END 2021-02-19 23:30 | disposition home or self-care (01) ==
PROVIDERS: Emergency Provider Internal Medicine
DX: S01.01XA Laceration without foreign body of scalp, initial encounter (principal); G44.309 Post-traumatic headache, unspecified, not intractable; M54.2 Cervicalgia; E11.9 Type 2 diabetes mellitus without complications; F14.10 Cocaine abuse, uncomplicated; F17.210 Nicotine dependence, cigarettes, uncomplicated; X99.0XXA Assault by sharp glass, initial encounter; Y93.9 Activity, unspecified; Y92.9 Unspecified place or not applicable; Y99.9 Unspecified external cause status; Z71.6 Tobacco abuse counseling; Z79.899 Other long term (current) drug therapy
CPT/HCPCS: 12001; 70450; 70486; 72125; 99283; 99284

== ENCOUNTER 2021-03-05 22:48 | Emergency (ER) | payer OTHER, SELFPAY | END 2021-03-06 02:00 | disposition left against medical advice (07) | PROVIDERS: Emergency Provider Emergency Medicine | DX: F99 Mental disorder, not otherwise specified (principal) ==

== ENCOUNTER 2021-03-08 01:22 | Emergency (ER) | payer OTHER, SELFPAY ==
[2021-03-08 01:30] VITALS: BP 112/68; BP 117/73; PULSE 82; PULSE 86; RESP 18; TEMP 36.4; O2SAT 99; BMI 27.5
[2021-03-08 01:56] LABS: MANUAL DIFF FLAG NO
[2021-03-08 02:09] LABS: Basophils Percent Auto 0.1 % (0-2); Eosinophils Absolute Auto 0.1 X10*3/uL (0.0-0.4); Eosinophils Percent Auto 1.3 % (0-4); Hematocrit 33.9 % (42-52); Hemoglobin 10.9 g/dl (14.0-18.0); Imm Gran Abs Auto 0.01 X10*3/uL (0.00-0.03); Imm Gran Pct Auto 0.1 % (0.0-0.4); Lymphocytes Absolute Auto 1.9 X10*3/uL (1.2-4.9); Lymphocytes Percent Auto 27.5 % (20-40); Mean Corpuscular HGB Conc 32.2 g/dl (31.0-36.0); Mean Corpuscular Hemoglobin 28.2 pg (27.0-33.0); Mean Corpuscular Volume 87.8 fL (80-98); Mean Platelet Volume 10.5 fL (9.4-12.4); Monocytes Absolute Auto 0.7 X10*3/uL (0.1-1.2); Monocytes Percent Auto 10.2 % (2-11); Neutrophils Absolute Auto 4.3 X10*3/uL (2.0-8.3); Neutrophils Percent Auto 60.8 % (45-73); Platelet Count 203 X10*3/uL (160-400); Red Blood Count 3.86 X10*6/uL (4.60-5.80); Red Cell Distribution Width 14.5 % (11.0-16.0); White Blood Count 7.1 X10*3/uL (4.8-10.8)
[2021-03-08 02:23] LABS: Lithium < 0.10 mmol/L (0.60-1.20)
[2021-03-08 02:24] LABS: Ethanol < 10 mg/dL
[2021-03-08 02:27] LABS: Alanine Aminotransferase 33 U/L (0-40); Albumin Level 3.6 g/dL (3.5-5.0); Alkaline Phosphatase 92 U/L (39-117); Anion Gap 10 (12-20); Aspartate Amino Transferase 47 U/L (5-37); Bilirubin Total 0.3 mg/dL (0.0-1.0); Blood Urea Nitrogen 15 mg/dL (9-16); Calcium 8.5 mg/dL (8.4-10.2); Carbon Dioxide 26 mmol/L (22-29); Chloride 105 mmol/L (96-108); Estimated Glomerular Filt Rate > 60; Glucose Random 130 mg/dL (60-115); Potassium 3.8 mmol/L (3.3-5.1); Sodium 137 mmol/L (135-145); Total Protein 6.8 g/dL (6.5-8.0)
[2021-03-08 03:39] LABS: Amphetamine Screen Urine Not Detected (Not Detect); Barbiturates, Urine Not Detected (Not Detect); Benzodiazepines Screen Urine Not Detected (Not Detect); Cannabinoid Screen Urine POSITIVE (Not Detect); Cocaine Screen Urine Not Detected (Not Detect); Fentanyl, urine POSITIVE (Not Detect); Opiate Screen Urine Not Detected (Not Detect); Phencyclidine Screen Urine Not Detected (Not Detect)
--- NOTE | 2021-03-08 07:07 | PC.NURSE ---
report taken from bryce lu pt here for reported si/hi, denies this endorsement at this time. pt is hyperverbal upon first contact, appears to be conversing w pt observers, all staff in area. inappropriate remarks w female staff, redirectable. eating breakfast, tolerating po w/o issue. awaiting crisis eval.
--- NOTE | 2021-03-08 07:54 | ED_ITS ---
HPI - Psych General Chief Complaint: Psychiatric Symptoms Stated Complaint: crisis Time Seen by Provider: 03/08/21 07:39 Source: patient and EMS Mode of arrival: EMS History of Present Illness HPI Narrative: Patient history of substance Abuse is use cannabis earlier picked up from police station where he went for crisis since as due to weak homicidal/suicidal reports on arrival patient was alert talkative with reports of confusing thoughts very paranoid and vague. Urine drug screen positive for fentanyl. Patient said he wants to fly to [place], has to take the flight at 10:00 o'clock which does not make any sense Related Data Home Medications Medication Instructions Recorded Confirmed buprenorphine 8 mg-naloxone 2 mg 1 strip SUBLINGUAL DAILY 02/18/21 03/08/21 sublingual film clonazepam 0.5 mg tablet 1 tab PO BID PRN 02/18/21 03/08/21 hydroxyzine pamoate 50 mg capsule 1 cap PO BID PRN 02/18/21 03/08/21 lithium carbonate 300 mg tablet 1 tab PO BID 02/18/21 03/08/21 quetiapine 100 mg tablet 1 tab PO BEDTIME 02/18/21 03/08/21 trazodone 100 mg tablet 1 tab PO BEDTIME 02/18/21 03/08/21 ferrous sulfate 324 mg (65 mg 1 tab PO DAILY 03/08/21 03/08/21 iron) tablet,delayed release naloxone 4 mg/actuation nasal 1 spray INTRANASAL DAILY PRN 03/08/21 03/08/21 spray (Narcan) prazosin 1 mg capsule 3 cap PO BEDTIME 03/08/21 03/08/21 vitamin B comp and C no.3 15 mg-10 1 cap PO DAILY 03/08/21 03/08/21 mg-50 mg-5 mg-300 mg capsule (B Complex Plus Vitamin C) Allergies Allergy/AdvReac Type Severity Reaction Status Date / Time No Known Allergies Allergy Verified 03/08/21 01:30 Review of Systems Review of Systems: Constitutional : No Fever, No Chills ENT/Mouth : No Ear Pain, No Nasal Congestion, No sore throat Eyes: No Eye Pain, No Swelling, No Redness Cardiovascular : No Chest Pain, No SOB Respiratory : No Cough, No Sputum, No Dyspnea Gastrointestinal : No Nausea, No Vomiting, No Diarrhea, No Hematochezia, No Melena Genitourinary : No Dysuria, No Urinary Frequency, No Hematuria Musculoskeletal : No Myalgias Skin : No Skin Lesions, No rash Neuro : No Weakness, No Numbness, No Paresthesias, No Dizziness, No Headache Psych : positive Anxiety, -ve Depression, neg SI/HI Heme/Lymph: No Lymphadenopathy Endocrine : No Polyuria, No Polydipsia PMF Past Medical History Medical History Bipolar disorder in remission Bipolar disorder with psychotic features Bipolar I disorder Cannabis use disorder, severe, dependence Cocaine use disorder, severe, dependence DM2 (diabetes mellitus, type 2) Hepatitis C Opioid use disorder, severe, dependence Social History Social History Household Members: None Housing: Homeless Do you presently have visiting nurse or other home services: No Alcohol intake: unknown Patient Tobacco Use Status: Current everyday Tobacco user Tobacco use type: Cigarette Cigarette Packs Per Day: 2 Cigarettes Per Day: 40.0 Years Smoked: 41 e-Cigarette/Vaping Use: Never Used Second Hand Smoke Exposure: No Substance Use Type: Crack/Cocaine Advance Directives: No Advance Directives Information Provided: No service: No Sexual orientation: Straight/Heterosexual Physical Exam Vital Signs: Vital Signs: Last Vital Signs Temp 97.1 F 03/08/21 14:44 Pulse 63 03/08/21 14:44 Resp 22 H 03/08/21 14:44 BP 154/86 H 03/08/21 14:44 Pulse Ox 100 03/08/21 14:44 Body Mass Index 27.5 Appearance: Alert. Oriented X3. No acute distress. Very talkative denies any hallucinations or delusion Eyes: PERRLA, No Nystagmus ENT: Pharynx normal. Oral Mucosa moist Neck: Normal inspection. Neck supple. CVS: Normal heart rate and rhythm. Pulses normal. Respiratory: No respiratory distress. Equal air entry bilateral, no wheezing/rales/rhonchi Abdomen: Soft and nontender. Bowel sounds are present, no mass palpable, no CVA tenderness Skin: Skin warm and dry. Normal skin color. Normal skin turgor. Extremities: No lower extremity edema. No calf tenderness psych: Very anxious delusional denies any hallucinations, paranoid+ no suicidal ideation or homicidal feelings Neuro: Oriented X 3. No motor deficit. No sensory deficit.No cerebellar signs , cranial nerves II-XII intact MDM - Psych MDM Narrative Medical decision making narrative: Patient seen by therapist plan for inpatient psych admission Lab Data Attestation: I reviewed the patient's lab results. Result diagrams: 03/08/21 01:50 03/08/21 01:50 Labs: Lab Results 03/08/21 03/08/21 03/08/21 Range/Units 01:50 01:50 01:50 WBC 7.1 (4.8-10.8) X10*3/uL RBC 3.86 L (4.60-5.80) X10*6/uL Hgb 10.9 L (14.0-18.0) g/dl Hct 33.9 L (42-52) % MCV 87.8 (80-98) fL MCH 28.2 (27.0-33.0) pg MCHC 32.2 (31.0-36.0) g/dl RDW 14.5 (11.0-16.0) % Plt Count 203 (160-400) X10*3/uL MPV 10.5 (9.4-12.4) fL Immature Gran % (Auto) 0.1 (0.0-0.4) % Neut % (Auto) 60.8 (45-73) % Lymph % (Auto) 27.5 (20-40) % Cameron % (Auto) 10.2 (2-11) % Eos % (Auto) 1.3 (0-4) % Baso % (Auto) 0.1 (0-2) % Lymph # (Auto) 1.9 (1.2-4.9) X10*3/uL Cameron # (Auto) 0.7 (0.1-1.2) X10*3/uL Eos # (Auto) 0.1 (0.0-0.4) X10*3/uL Baso # (Auto) 0.0 (0.0-0.2) X10*3/uL Abs Immat Gran (auto) 0.01 (0.00-0.03) X10*3/uL Absolute Neuts (auto) 4.3 (2.0-8.3) X10*3/uL Absolute Nucleated RBC 0.000 (0.0-0.012) X10*3/uL Nucleated RBC % (auto) 0.0 (0.0-0.2) /100WBC Sodium 137 (135-145) mmol/L Potassium 3.8 (3.3-5.1) mmol/L Chloride 105 (96-108) mmol/L Carbon Dioxide 26 (22-29) mmol/L Anion Gap 10 L (12-20) BUN 15 D (9-16) mg/dL Creatinine 0.97 (0.5-1.4) mg/dL Estim Creat Clear Calc 88.0 Estimated GFR > 60 Random Glucose 130 H (60-115) mg/dL Calcium 8.5 (8.4-10.2) mg/dL Total Bilirubin 0.3 (0.0-1.0) mg/dL AST 47 H (5-37) U/L ALT 33 (0-40) U/L Alkaline Phosphatase 92 D (39-117) U/L Total Protein 6.8 (6.5-8.0) g/dL Albumin 3.6 (3.5-5.0) g/dL Urine Opiates Screen (Not Detect) Urine Fentanyl Screen (Not Detect) Ur Barbiturates Screen (Not Detect) Ur Phencyclidine Scrn (Not Detect) Ur Amphetamines Screen (Not Detect) U Benzodiazepines Scrn (Not Detect) [place] (0.60-1.20) mmol/L Urine Cocaine Screen (Not Detect) U Marijuana (THC) Screen (Not Detect) Ethyl Alcohol < 10 mg/dL COVID-19 (JAMMIE) (Negative) COVID-19 Clin Com 03/08/21 03/08/21 03/08/21 Range/Units 01:50 03:10 08:50 WBC (4.8-10.8) X10*3/uL RBC (4.60-5.80) X10*6/uL Hgb (14.0-18.0) g/dl Hct (42-52) % MCV (80-98) fL MCH (27.0-33.0) pg MCHC (31.0-36.0) g/dl RDW (11.0-16.0) % Plt Count (160-400) X10*3/uL MPV (9.4-12.4) fL Immature Gran % (Auto) (0.0-0.4) % Neut % (Auto) (45-73) % Lymph % (Auto) (20-40) % Cameron % (Auto) (2-11) % Eos % (Auto) (0-4) % Baso % (Auto) (0-2) % Lymph # (Auto) (1.2-4.9) X10*3/uL Cameron # (Auto) (0.1-1.2) X10*3/uL Eos # (Auto) (0.0-0.4) X10*3/uL Baso # (Auto) (0.0-0.2) X10*3/uL Abs Immat Gran (auto) (0.00-0.03) X10*3/uL Absolute Neuts (auto) (2.0-8.3) X10*3/uL Absolute Nucleated RBC (0.0-0.012) X10*3/uL Nucleated RBC % (auto) (0.0-0.2) /100WBC Sodium (135-145) mmol/L Potassium (3.3-5.1) mmol/L Chloride (96-108) mmol/L Carbon Dioxide (22-29) mmol/L Anion Gap (12-20) BUN (9-16) mg/dL Creatinine (0.5-1.4) mg/dL Estim Creat Clear Calc Estimated GFR Random Glucose (60-115) mg/dL Calcium (8.4-10.2) mg/dL Total Bilirubin (0.0-1.0) mg/dL AST (5-37) U/L ALT (0-40) U/L Alkaline Phosphatase (39-117) U/L Total Protein (6.5-8.0) g/dL Albumin (3.5-5.0) g/dL Urine Opiates Screen Not Detected (Not Detect) Urine Fentanyl Screen POSITIVE H (Not Detect) Ur Barbiturates Screen Not Detected (Not Detect) Ur Phencyclidine Scrn Not Detected (Not Detect) Ur Amphetamines Screen Not Detected (Not Detect) U Benzodiazepines Scrn Not Detected (Not Detect) [place] < 0.10 L (0.60-1.20) mmol/L Urine Cocaine Screen Not Detected (Not Detect) U Marijuana (THC) Screen POSITIVE H (Not Detect) Ethyl Alcohol mg/dL COVID-19 (JAMMIE) Negative (Negative) COVID-19 Clin Com See Note Discharge Plan Discharge Clinical Impression: Bipolar disorder with psychotic features, Polysubstance abuse Prescriptions: No Action clonazepam 0.5 mg tablet 1 tab PO BID PRN (Reason: Anxiety) RF: 0 hydroxyzine pamoate 50 mg capsule 1 cap PO BID PRN (Reason: anxiety) RF: 0 quetiapine 100 mg tablet 1 tab PO BEDTIME RF: 0 trazodone 100 mg tablet 1 tab PO BEDTIME RF: 0 lithium carbonate 300 mg tablet 1 tab PO BID RF: 0 buprenorphine-naloxone 8-2 mg film 1 strip sublingual DAILY RF: 0 prazosin 1 mg capsule 3 cap PO BEDTIME RF: 0 B Complex Plus Vitamin C 23-93-49-5-300 mg capsule 1 cap PO DAILY RF: 0 ferrous sulfate 324 mg (65 mg iron) tablet,delayed release (DR/EC) 1 tab PO DAILY RF: 0 Narcan 4 mg/actuation spray,non-aerosol 1 spray intranasal DAILY PRN (Reason: Opiate Reversal) RF: 0
[2021-03-08 09:20] LABS: COVID-19 Test Negative (Negative); IDNOW Serial# 08D9AD1C
--- NOTE | 2021-03-08 11:04 | PHA.MEDREC ---
Pharmacy Consult ? Medication Reconciliation Pharmacy has completed the medication reconciliation. PT is requesting a nicotine patch.
[2021-03-08 14:44] VITALS: BP 154/86; PULSE 63; RESP 22; TEMP 36.2; O2SAT 100
[2021-03-08] MEDS: LORazepam 1 MG TABLET 2 MG PO (14:58)
[2021-03-08 20:01] VITALS: BP 109/63; PULSE 70; RESP 18; TEMP 36.1; O2SAT 98
--- NOTE | 2021-03-08 20:11 | PC.NURSE ---
attempting to discharge pt and he is being verbaly angrey about leaving at this time. 2nd we located his clothing in the dryer. pt given another set of clothing along with his cloths in the dryer. security present.
== END 2021-03-08 20:25 | disposition home or self-care (01) ==
PROVIDERS: Emergency Provider Internal Medicine
DX: F31.2 Bipolar disorder, current episode manic severe with psychotic features (principal); F19.10 Other psychoactive substance abuse, uncomplicated; Z20.822 Contact with and (suspected) exposure to COVID-19; E11.9 Type 2 diabetes mellitus without complications; B19.20 Unspecified viral hepatitis C without hepatic coma; F12.20 Cannabis dependence, uncomplicated; F14.20 Cocaine dependence, uncomplicated; F11.20 Opioid dependence, uncomplicated; F17.210 Nicotine dependence, cigarettes, uncomplicated; Z79.899 Other long term (current) drug therapy
CPT/HCPCS: 36415; 80053; 80178; 80307; 82077; 85025; 87635; 99284

== ENCOUNTER 2021-03-09 13:35 | Emergency (ER) | payer OTHER, SELFPAY ==
[2021-03-09 14:08] VITALS: BP 114/63; PULSE 94; RESP 16; TEMP 37.1; O2SAT 94; BMI 27.3
--- NOTE | 2021-03-09 14:56 | ED_ITS ---
HPI - Psych General Chief Complaint: Psychiatric Symptoms Stated Complaint: crisis Time Seen by Provider: 03/09/21 14:53 Source: patient Mode of arrival: ambulatory Limitations: no limitations History of Present Illness HPI Narrative: 55-year-old male with a past medical history of anxiety, bipolar disorder 1, chronic cannabis/opioid and cocaine use is presenting to the ED with complaints of increased anxiety/depression and hearing voices. Although when I went to evaluate the patient he was trying to cuddle with another patient in the Pod and trying to get naked with her and I explained to him that he cannot do this and he reported that he does not understand why he cannot get naked in cuddle with this lady and he no longer wants to be here. He denies any SI/HI/auditory visualizations thoughts of self-injury. Therefore patient requesting to be discharged. I do not see any signs of intoxication therefore will discharge at this time. MD complaint: feels depressed, anxiety and hallucinations Onset (ago): day(s) Duration: changing over time History of same: Yes Relieving factors: none Exacerbating factors: none Associated symptoms: denies other symptoms Treatments prior to arrival: none Related Data Home Medications Medication Instructions Recorded Confirmed buprenorphine 8 mg-naloxone 2 mg 1 strip SUBLINGUAL DAILY 02/18/21 03/08/21 sublingual film clonazepam 0.5 mg tablet 1 tab PO BID PRN 02/18/21 03/08/21 hydroxyzine pamoate 50 mg capsule 1 cap PO BID PRN 02/18/21 03/08/21 lithium carbonate 300 mg tablet 1 tab PO BID 02/18/21 03/08/21 quetiapine 100 mg tablet 1 tab PO BEDTIME 02/18/21 03/08/21 trazodone 100 mg tablet 1 tab PO BEDTIME 02/18/21 03/08/21 ferrous sulfate 324 mg (65 mg 1 tab PO DAILY 03/08/21 03/08/21 iron) tablet,delayed release naloxone 4 mg/actuation nasal 1 spray INTRANASAL DAILY PRN 03/08/21 03/08/21 spray (Narcan) prazosin 1 mg capsule 3 cap PO BEDTIME 03/08/21 03/08/21 vitamin B comp and C no.3 15 mg-10 1 cap PO DAILY 03/08/21 03/08/21 mg-50 mg-5 mg-300 mg capsule (B Complex Plus Vitamin C) Allergies Allergy/AdvReac Type Severity Reaction Status Date / Time No Known Allergies Allergy Verified 03/08/21 01:30 Review of Systems Review of Systems: Constitutional : No Fever, No Chills ENT/Mouth : No Ear Pain, No Nasal Congestion, No sore throat Eyes: No Eye Pain, No Swelling, No Redness Cardiovascular : No Chest Pain, No SOB Respiratory : No Cough, No Sputum, No Dyspnea Gastrointestinal : No ingestions, No Nausea, No Vomiting, No Diarrhea, No Hematochezia, No Melena Genitourinary : No Dysuria, No Urinary Frequency, No Hematuria Musculoskeletal : No Myalgias Skin : No Skin Lesions, No rash Neuro : No Weakness, No Numbness, No Paresthesias, No Dizziness, No Headache Psych : + Anxiety, + Depression, + auditory hallucinations, No SI, No thoughts of self injury, No HI, No visual hallucinations Heme/Lymph: No Lymphadenopathy Endocrine : No Polyuria, No Polydipsia Yes all other systems are reviewed and are negative [facility] Past Medical History Attestation statement: The following information was validated with the patient. Medical History Bipolar disorder in remission Bipolar disorder with psychotic features Bipolar I disorder Cannabis use disorder, severe, dependence Cocaine use disorder, severe, dependence DM2 (diabetes mellitus, type 2) Hepatitis C Opioid use disorder, severe, dependence Social History Social History Household Members: None Housing: Homeless Do you presently have visiting nurse or other home services: No Alcohol intake: unknown Patient Tobacco Use Status: Current everyday Tobacco user Tobacco use type: Cigarette Cigarette Packs Per Day: 2 Cigarettes Per Day: 40.0 Years Smoked: 41 e-Cigarette/Vaping Use: Never Used Second Hand Smoke Exposure: No Substance Use Type: Crack/Cocaine Advance Directives: No Advance Directives Information Provided: Yes service: No Sexual orientation: Straight/Heterosexual Physical Exam Vital Signs: Vital Signs: Last Vital Signs Temp 98.7 F 03/09/21 14:08 Pulse 94 03/09/21 14:08 Resp 16 03/09/21 14:08 BP 114/63 03/09/21 14:08 Pulse Ox 94 03/09/21 14:08 Body Mass Index 27.3 vital signs have been reviewed as normal and appeared to be correct. Blood pressure normal. Heart rate normal. Respiration rate normal. Temperature normal. Oxygen saturation normal. Appearance: Alert. Oriented X3. No acute distress. Head: Normal external exam. Normocephalic. Atraumatic. No Chilel signs noted. No raccoon eyes noted Eyes: PERRLA. EOMI. Conjunctiva and sclera normal. Eyelids normal. ENT: EAC normal. TM's Normal. Pharynx normal. Uvula midline. Moist mucous membranes. No trismus noted. No drooling noted. No muffled voice noted. Neck: Normal inspection. Neck supple. FROM. No adenopathy. Thyroid Normal. No meningeal signs. No neck mass noted. CVS: Normal heart rate and rhythm. Heart sound normal. No murmurs noted. Pulses normal throughout. Respiratory: No respiratory distress. Painless inspiration. Breath sounds normal. No wheezes/rales/rhonchi noted. Chest nontender. No accessory muscle usage noted or decreased air movement noted. Abdomen: Soft and nontender. Bowel sounds normal in all 4 quadrants. No distention noted. No organomegaly noted. No visible injury noted. Back: No CVA tenderness. Full range of motion noted. Skin: Skin warm and dry. Normal skin color. Normal skin turgor. No rashes/lesions/lacerations noted. Extremities: No lower extremity edema. Extremities exhibit normal range of motion. Extremities nontender. Neuro: Oriented X 3. No motor deficit. No sensory deficit. Reflexes normal. Psych: Appearance grossly normal, well-kept, mental status normal, speech and movement normal, speech clear, is very anxious and aggressive although Is cooperative. Normal thought process. Normal thought content. Normal good insight. Judgment good. [facility] - Psych Medical Records Attestation: I reviewed the patient's medical records. Discharge Plan Discharge Clinical Impression: Acute anxiety Patient Disposition: Home, Self-Care Instructions: Anxiety (ED) Prescriptions: No Action clonazepam 0.5 mg tablet 1 tab PO BID PRN (Reason: Anxiety) RF: 0 hydroxyzine pamoate 50 mg capsule 1 cap PO BID PRN (Reason: anxiety) RF: 0 quetiapine 100 mg tablet 1 tab PO BEDTIME RF: 0 trazodone 100 mg tablet 1 tab PO BEDTIME RF: 0 lithium carbonate 300 mg tablet 1 tab PO BID RF: 0 buprenorphine-naloxone 8-2 mg film 1 strip sublingual DAILY RF: 0 prazosin 1 mg capsule 3 cap PO BEDTIME RF: 0 B Complex Plus Vitamin C 14-62-04-5-300 mg capsule 1 cap PO DAILY RF: 0 ferrous sulfate 324 mg (65 mg iron) tablet,delayed release (DR/EC) 1 tab PO DAILY RF: 0 Narcan 4 mg/actuation spray,non-aerosol 1 spray intranasal DAILY PRN (Reason: Opiate Reversal) RF: 0 Referrals: Physician,Unknown [Primary Care Provider] - 2 days (your pcp) Print Language: Djib[place]ian
== END 2021-03-09 15:13 | disposition home or self-care (01) ==
PROVIDERS: Emergency Provider Internal Medicine
DX: F41.9 Anxiety disorder, unspecified (principal); R44.0 Auditory hallucinations; E11.9 Type 2 diabetes mellitus without complications; F11.20 Opioid dependence, uncomplicated; F12.20 Cannabis dependence, uncomplicated; F14.20 Cocaine dependence, uncomplicated; B19.20 Unspecified viral hepatitis C without hepatic coma; Z79.899 Other long term (current) drug therapy; Z59.0 Homelessness
CPT/HCPCS: 99282; 99284

== ENCOUNTER 2021-03-10 00:39 | Emergency (ER) | payer OTHER, SELFPAY ==
[2021-03-10 01:03] VITALS: BMI 26.5
--- NOTE | 2021-03-10 01:13 | ED.PSYCH ---
HPI - Psych General Chief Complaint: ETOH/Substance Use Stated Complaint: etoh crisis Time Seen by Provider: 03/10/21 01:07 Source: patient Mode of arrival: ambulatory Limitations: no limitations History of Present Illness HPI Narrative: Patient comes emergency room by EMS. According to EMS, the patient was intoxicated, acting erratic, patient walked into a police station and started yelling at them from the lobby. The police officers called EMS, EMS picked the patient up, and brought him to the emergency room. Patient's only complain is erythema in his left eye that started today. Per patient's medical records, patient has tested multiple times positive for opiates, fentanyl, cocaine, marijuana. Patient was seen here yesterday, he tested positive for fentanyl and marijuana. Related Data Home Medications Medication Instructions Recorded Confirmed buprenorphine 8 mg-naloxone 2 mg 1 strip SUBLINGUAL DAILY 02/18/21 03/08/21 sublingual film clonazepam 0.5 mg tablet 1 tab PO BID PRN 02/18/21 03/08/21 hydroxyzine pamoate 50 mg capsule 1 cap PO BID PRN 02/18/21 03/08/21 lithium carbonate 300 mg tablet 1 tab PO BID 02/18/21 03/08/21 quetiapine 100 mg tablet 1 tab PO BEDTIME 02/18/21 03/08/21 trazodone 100 mg tablet 1 tab PO BEDTIME 02/18/21 03/08/21 ferrous sulfate 324 mg (65 mg 1 tab PO DAILY 03/08/21 03/08/21 iron) tablet,delayed release naloxone 4 mg/actuation nasal 1 spray INTRANASAL DAILY PRN 03/08/21 03/08/21 spray (Narcan) prazosin 1 mg capsule 3 cap PO BEDTIME 03/08/21 03/08/21 vitamin B comp and C no.3 15 mg-10 1 cap PO DAILY 03/08/21 03/08/21 mg-50 mg-5 mg-300 mg capsule (B Complex Plus Vitamin C) Allergies Allergy/AdvReac Type Severity Reaction Status Date / Time No Known Allergies Allergy Verified 03/08/21 01:30 Review of Systems Review of Systems: Constitutional : No Weight loss, No Fever, No Chills, No Night Sweats, No Fatigue, No Malaise ENT/Mouth : No Hearing loss, No Ear Pain, No Nasal Congestion, No Sinus Pain, No Hoarseness, No sore throat, No Rhinorrhea, No Swallowing Difficulty Eyes: No Eye Pain, complaining of eye redness, thick discharge from the left eye, No Foreign Body, No Discharge, No Vision Changes Cardiovascular : No Chest Pain, No SOB, No Dyspnea on Exertion, No Orthopnea, No Edema, No Palpitations Respiratory : No Cough, No Sputum, No Wheezing, No Smoke Exposure, No Dyspnea Gastrointestinal : No Nausea, No Vomiting, No Diarrhea, No Constipation, No abdominal Pain, No Hematochezia, No Melena Genitourinary : no irregular bleeding, No Dysuria, No Urinary Frequency, No Hematuria, No Urinary Incontinence, No Urgency, No Flank Pain, No Urinary Flow Changes, No Hesitancy Musculoskeletal : No joint pain, No Myalgias, No Joint Swelling Skin : No Skin Lesions, No rash Neuro : No Weakness, No Numbness, No Paresthesias, No Loss of Consciousness, No Dizziness, No Headache Psych : No Anxiety/Panic, No Depression, No SI/HI/AH/VH, No Social Issues, Heme/Lymph: No Bruising, No Bleeding,No Lymphadenopathy Endocrine : No Polyuria, No Polydipsia, No Temperature Intolerance [facility] Past Medical History Medical History Bipolar disorder in remission Bipolar disorder with psychotic features Bipolar I disorder Cannabis use disorder, severe, dependence Cocaine use disorder, severe, dependence DM2 (diabetes mellitus, type 2) Hepatitis C Opioid use disorder, severe, dependence Social History Social History Household Members: None Housing: Homeless Do you presently have visiting nurse or other home services: No Alcohol intake: unknown Patient Tobacco Use Status: Current everyday Tobacco user Tobacco use type: Cigarette Cigarette Packs Per Day: 2 Cigarettes Per Day: 40.0 Years Smoked: 41 e-Cigarette/Vaping Use: Never Used Second Hand Smoke Exposure: No Substance Use Type: Crack/Cocaine Advance Directives: No service: No Sexual orientation: Straight/Heterosexual Physical Exam Vital Signs: Vital Signs: Body Mass Index 26.5 Const: Other: Appearance: Alert. Oriented X3. No acute distress. Eyes: Pupils equal, round and reactive to light. Positive conjunctival injection bilaterally, most notorious in the left eye. thick sticky discharge present ENT: Pharynx normal. Neck: Normal inspection. Neck supple. No lymph nodes noted. No crepitus CVS: Normal heart rate and rhythm. Pulses normal. Normal S1 and S2 Respiratory: No respiratory distress. Breath sounds normal. No Wheezing. No rales Abdomen: Soft and nontender. No rigidity. No distention. good BS x4 Skin: Skin warm and dry. Normal skin color. Normal skin turgor. Extremities: No lower extremity edema. No lower extremity edema. No Lacerations. No Rash Neuro: Oriented X 3. No motor deficit. No sensory deficit. Moving all extermities. No slurred speech. Psych: Pressured speech, seems intoxicated Course Course Course Narrative: Patient was provided with erythromycin ointment for his eyes. At this time, patient is likely intoxicated. Patient will stay in the ED, metabolize to freedom, and will be re-evaluated once he is sober. Discharge Plan Discharge Clinical Impression: Conjunctivitis, Substance abuse Prescriptions: No Action clonazepam 0.5 mg tablet 1 tab PO BID PRN (Reason: Anxiety) RF: 0 hydroxyzine pamoate 50 mg capsule 1 cap PO BID PRN (Reason: anxiety) RF: 0 quetiapine 100 mg tablet 1 tab PO BEDTIME RF: 0 trazodone 100 mg tablet 1 tab PO BEDTIME RF: 0 lithium carbonate 300 mg tablet 1 tab PO BID RF: 0 buprenorphine-naloxone 8-2 mg film 1 strip sublingual DAILY RF: 0 prazosin 1 mg capsule 3 cap PO BEDTIME RF: 0 B Complex Plus Vitamin C 24-71-06-5-300 mg capsule 1 cap PO DAILY RF: 0 ferrous sulfate 324 mg (65 mg iron) tablet,delayed release (DR/EC) 1 tab PO DAILY RF: 0 Narcan 4 mg/actuation spray,non-aerosol 1 spray intranasal DAILY PRN (Reason: Opiate Reversal) RF: 0
[2021-03-10 01:43] VITALS: BP 104/47; PULSE 75; RESP 18; TEMP 36.1; O2SAT 98
[2021-03-10 04:48] VITALS: RESP 14
[2021-03-10] MEDS: Erythromycin Base 0.5% Oph Oin 1 GM TUBE 1 CM EYE-LEFT (08:47)
--- NOTE | 2021-03-10 08:47 | PC.NURSE ---
MEDICATION GIVEN BY PREVIOUS
--- NOTE | 2021-03-10 08:49 | PC.NURSE ---
PT WOKE UP AND IS BEING VERBALLY AGGRESSIVE AND INAPPROPRIATE. HE IS SPITTING ON THE BED. WE ARE LOOKING FOR HIS CLOTHING FOR DISCHARGE
== END 2021-03-10 09:19 | disposition home or self-care (01) ==
PROVIDERS: Emergency Provider Emergency Medicine
DX: H10.9 Unspecified conjunctivitis (principal); F17.210 Nicotine dependence, cigarettes, uncomplicated; F14.90 Cocaine use, unspecified, uncomplicated; F12.10 Cannabis abuse, uncomplicated; F11.20 Opioid dependence, uncomplicated; E11.9 Type 2 diabetes mellitus without complications; Z71.6 Tobacco abuse counseling; Z79.899 Other long term (current) drug therapy
CPT/HCPCS: 99285

== ENCOUNTER 2021-03-11 13:14 | Emergency (ER) | payer OTHER, SELFPAY ==
[2021-03-11 13:23] VITALS: BP 144/71; PULSE 106; RESP 18; TEMP 36.6; O2SAT 98; BMI 25.8
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
[2021-03-11] MEDS: LORazepam 1 MG TABLET 2 MG PO (13:53)
[2021-03-11] MEDS: OLANZapine 5 MG TABLET PO (13:53)
[2021-03-11 14:02] LABS: MANUAL DIFF FLAG NO
[2021-03-11 14:06] LABS: Basophils Percent Auto 0.4 % (0-2); Eosinophils Absolute Auto 0.1 X10*3/uL (0.0-0.4); Eosinophils Percent Auto 0.6 % (0-4); Hematocrit 40.1 % (42-52); Hemoglobin 12.8 g/dl (14.0-18.0); Imm Gran Abs Auto 0.02 X10*3/uL (0.00-0.03); Imm Gran Pct Auto 0.3 % (0.0-0.4); Lymphocytes Absolute Auto 1.8 X10*3/uL (1.2-4.9); Lymphocytes Percent Auto 22.8 % (20-40); Mean Corpuscular HGB Conc 31.9 g/dl (31.0-36.0); Mean Corpuscular Hemoglobin 27.9 pg (27.0-33.0); Mean Corpuscular Volume 87.6 fL (80-98); Mean Platelet Volume 10.5 fL (9.4-12.4); Monocytes Absolute Auto 0.6 X10*3/uL (0.1-1.2); Neutrophils Absolute Auto 5.4 X10*3/uL (2.0-8.3); Neutrophils Percent Auto 67.9 % (45-73); Platelet Count 248 X10*3/uL (160-400); Red Blood Count 4.58 X10*6/uL (4.60-5.80); Red Cell Distribution Width 14.5 % (11.0-16.0); White Blood Count 7.9 X10*3/uL (4.8-10.8)
[2021-03-11 14:26] LABS: Lithium < 0.10 mmol/L (0.60-1.20)
[2021-03-11 14:27] LABS: Anion Gap 13 (12-20); Blood Urea Nitrogen 15 mg/dL (9-16); Calcium 9.3 mg/dL (8.4-10.2); Carbon Dioxide 27 mmol/L (22-29); Chloride 104 mmol/L (96-108); Creatinine Clr Calc Pharmacy 82.3; Estimated Glomerular Filt Rate > 60; Ethanol < 10 mg/dL; Glucose Random 84 mg/dL (60-115); Potassium 3.7 mmol/L (3.3-5.1); Sodium 140 mmol/L (135-145)
[2021-03-11 14:29] LABS: Alanine Aminotransferase 37 U/L (0-40); Albumin Level 4.2 g/dL (3.5-5.0); Alkaline Phosphatase 105 U/L (39-117); Aspartate Amino Transferase 49 U/L (5-37); Bilirubin Direct 0.2 mg/dL (0.0-0.5); Bilirubin Total 0.5 mg/dL (0.0-1.0)
[2021-03-11 15:42] LABS: COVID-19 Test Negative (Negative)
[2021-03-11 20:41] LABS: Amphetamine Screen Urine Not Detected (Not Detect); Barbiturates, Urine Not Detected (Not Detect); Benzodiazepines Screen Urine Not Detected (Not Detect); Cannabinoid Screen Urine POSITIVE (Not Detect); Cocaine Screen Urine POSITIVE (Not Detect); Fentanyl, urine POSITIVE (Not Detect); Opiate Screen Urine POSITIVE (Not Detect); Phencyclidine Screen Urine Not Detected (Not Detect)
[2021-03-11 23:54] VITALS: BP 117/61; PULSE 65; RESP 16; TEMP 36.1; O2SAT 99
[2021-03-12] MEDS: traZODone HCL 100 MG TABLET PO (00:46)
[2021-03-12] MEDS: Lithium Carbonate 300 MG CAPSULE PO ×2 (00:46→08:17)
[2021-03-12 00:51] VITALS: BP 93/47; PULSE 71
[2021-03-12] MEDS: Ibuprofen 800 MG TABLET PO (05:06)
[2021-03-12 05:37] VITALS: TEMP 37.2
[2021-03-12] MEDS: Nicotine 21 MG PATCH.TD24 TRANSDERMA (05:46)
--- NOTE | 2021-03-12 07:18 | PC.NURSE ---
patient appears to remain at rest at present patient appears in no distress, respirations are even and unlabored.
== END 2021-03-12 11:09 | disposition home or self-care (01) ==
PROVIDERS: Emergency Provider Emergency Medicine
DX: F19.10 Other psychoactive substance abuse, uncomplicated (principal); R45.851 Suicidal ideations; R00.0 Tachycardia, unspecified; R45.1 Restlessness and agitation; F11.20 Opioid dependence, uncomplicated; Z20.822 Contact with and (suspected) exposure to COVID-19; E11.9 Type 2 diabetes mellitus without complications; B19.20 Unspecified viral hepatitis C without hepatic coma; F31.9 Bipolar disorder, unspecified; F17.210 Nicotine dependence, cigarettes, uncomplicated; Z79.899 Other long term (current) drug therapy
CPT/HCPCS: 36415; 80048; 80076; 80178; 80307; 82077; 85025; 87635; 99283; 99284

== ENCOUNTER 2021-06-06 21:11 | Emergency (ER) | payer OTHER, SELFPAY ==
[2021-06-06 21:16] VITALS: BP 132/81; PULSE 125; RESP 17; TEMP 36.6; O2SAT 93; BMI 27.3
[2021-06-06 22:03] LABS: COVID-19 Test Negative (Negative); IDNOW Serial# 9DD0AD1C
--- NOTE | 2021-06-06 22:23 | ED.PSYCH ---
HPI - Psych General Chief Complaint: Psychiatric Symptoms <Palomo Tavares MD - Last Filed: 06/07/21 07:57> Stated Complaint: CRISIS/SI (VOLUNTARY) <Palomo Tavares MD - Last Filed: 06/07/21 07:57> Time Seen by Provider: 06/06/21 22:23 <Palomo Tavares MD - Last Filed: 06/07/21 07:57> Source: patient and EMS <Palomo Tavares MD - Last Filed: 06/07/21 07:57> Mode of arrival: EMS <Palomo Tavares MD - Last Filed: 06/07/21 07:57> Limitations: no limitations <Palomo Tavares MD - Last Filed: 06/07/21 07:57> History of Present Illness HPI Narrative: Patient was discharged from [facility], picked up from [facility] with suicidal ideation. <Palomo Tavares MD - Last Filed: 06/07/21 07:57> MD complaint: suicidal ideation and feels depressed <Palomo Tavares MD - Last Filed: 06/07/21 07:57> Onset (ago): week(s) <Palomo Tavares MD - Last Filed: 06/07/21 07:57> Duration: constant <Palomo Tavares MD - Last Filed: 06/07/21 07:57> Context: recent alcohol abuse and recent drug abuse <Palomo Tavares MD - Last Filed: 06/07/21 07:57> Associated psychiatric symptoms: depression and suicidal ideation <Palomo Tavares MD - Last Filed: 06/07/21 07:57> Related Data Home Medications: Home Medications Medication Instructions Recorded Confirmed lithium carbonate 300 mg capsule 600 mg PO BEDTIME 06/06/21 06/06/21 quetiapine 100 mg tablet 100 mg PO BEDTIME 06/06/21 06/06/21 quetiapine 25 mg tablet 1 tab PO BID 06/06/21 06/06/21 <Palomo Tavares MD - Last Filed: 06/07/21 07:57> Allergies/Adverse Reactions: Allergies Allergy/AdvReac Type Severity Reaction Status Date / Time No Known Allergies Allergy Verified 03/08/21 01:30 <Palomo Tavares MD - Last Filed: 06/07/21 07:57> Review of Systems Constitutional: Constitutional: Reports no additional constitutional complaints <Palomo Tavares MD - Last Filed: 06/07/21 07:57> Eyes: Eyes: Reports no additional eye complaints <Palomo Tavares MD - Last Filed: 06/07/21 07:57> ENT: Denies dizziness <Palomo Tavares MD - Last Filed: 06/07/21 07:57> Cardiovascular: Cardiovascular: Reports no additional cardiovascular complaints <Palomo Tavares MD - Last Filed: 06/07/21 07:57> Respiratory: Respiratory: Reports as per HPI <Palomo Tavares MD - Last Filed: 06/07/21 07:57> Gastrointestinal: Gastrointestinal: Reports no additional gastrointestinal complaints <Palomo Tavares MD - Last Filed: 06/07/21 07:57> Musculoskeletal: Musculoskeletal: Reports no additional musculoskeletal complaints <Palomo Tavares MD - Last Filed: 06/07/21 07:57> Integumentary/Breasts: Skin/Breast: Denies rash <Palomo Tavares MD - Last Filed: 06/07/21 07:57> Neurologic: Reports system reviewed and no additional complaints, except as documented, Denies dizziness and Denies Sensory deficit (Neuro) <Palomo Tavares MD - Last Filed: 06/07/21 07:57> Psychiatric: Psychiatric: Denies anxiety <Palomo Tavares MD - Last Filed: 06/07/21 07:57> [facility] Past Medical History Medical History: Medical History Bipolar disorder in remission Bipolar disorder with psychotic features Bipolar I disorder Cannabis use disorder, severe, dependence Cocaine use disorder, severe, dependence DM2 (diabetes mellitus, type 2) Hepatitis C Opioid use disorder, severe, dependence <Palomo Tavares MD - Last Filed: 06/07/21 07:57> Social History Social History: Social History Household Members: None Housing: Homeless Do you presently have visiting nurse or other home services: No Alcohol intake: unknown Patient Tobacco Use Status: Current everyday Tobacco user Tobacco use type: Cigarette Cigarette Packs Per Day: 2 Cigarettes Per Day: 40.0 Years Smoked: 41 e-Cigarette/Vaping Use: Never Used Second Hand Smoke Exposure: No Substance Use Type: Crack/Cocaine Advance Directives: No service: No Sexual orientation: Straight/Heterosexual <Palomo Tavares MD - Last Filed: 06/07/21 07:57> Physical Exam Vital Signs: Vital Signs: Last Vital Signs Temp 98.3 F 06/07/21 06:16 Pulse 100 06/07/21 06:16 Resp 16 06/07/21 06:16 BP 134/82 06/07/21 06:16 Pulse Ox 95 06/07/21 06:16 Body Mass Index 27.3 <Palomo Tavares MD - Last Filed: 06/07/21 07:57> Vital Signs: Last Vital Signs Temp 98.3 F 06/07/21 06:16 Pulse 100 06/07/21 06:16 Resp 16 06/07/21 06:16 BP 134/82 06/07/21 06:16 Pulse Ox 95 06/07/21 06:16 Body Mass Index 27.3 <CHRIS Oh - Last Filed: 06/07/21 12:50> Const: General: healthy appearing <Palomo Tavares MD - Last Filed: 06/07/21 07:57> Nutritional Appearance: average body habitus <Palomo Tavares MD - Last Filed: 06/07/21 07:57> Orientation/consciousness: oriented to person and patient oriented x3 <Palomo Tavares MD - Last Filed: 06/07/21 07:57> Limitations: no limitations <Palomo Tavares MD - Last Filed: 06/07/21 07:57> HENMT: Head: Yes normal to inspection <Palomo Tavares MD - Last Filed: 06/07/21 07:57> Ears: external ears normal <Palomo Tavares MD - Last Filed: 06/07/21 07:57> General nose exam: Normal external nose present <Palomo Tavares MD - Last Filed: 06/07/21 07:57> Mouth: Normal oral and palatal mucosa present and oropharynx normal <Palomo Tavares MD - Last Filed: 06/07/21 07:57> Throat: Yes posterior oropharynx normal <Palomo Tavares MD - Last Filed: 06/07/21 07:57> Eyes: General: appearance normal, both eyes and all related structures <Palomo Tavares MD - Last Filed: 06/07/21 07:57> Neck: Other: supple <Palomo Tavares MD - Last Filed: 06/07/21 07:57> Neck: Yes normal visual inspection <Palomo Tavares MD - Last Filed: 06/07/21 07:57> Chest: Chest palpation & inspection: normal inspection of the chest <Palomo Tavares MD - Last Filed: 06/07/21 07:57> Resp: Auscultation: clear to auscultation bilaterally <Palomo Tavares MD - Last Filed: 06/07/21 07:57> Cardio: Jugular venous distension: no JVD <Palomo Tavares MD - Last Filed: 06/07/21 07:57> Rate: regular rate <Palomo Tavares MD - Last Filed: 06/07/21 07:57> Rhythm: regular rhythm <Palomo Tavares MD - Last Filed: 06/07/21 07:57> Heart sounds: S1 normal heart sound present and S2 normal heart sound present <Palomo Tavares MD - Last Filed: 06/07/21 07:57> GI: Inspection: Yes normal to inspection <Palomo Tavares MD - Last Filed: 06/07/21 07:57> Palpation (GI): Soft to palpation, nontender and No hepatosplenomegaly present <Palomo Tavares MD - Last Filed: 06/07/21 07:57> Auscultation: normal bowel sounds <Palomo Tavares MD - Last Filed: 06/07/21 07:57> : General: Yes no CVA tenderness <Palomo Tavares MD - Last Filed: 06/07/21 07:57> Back/Spine/Pelvis: Back: no CVA tenderness <Palomo Tavares MD - Last Filed: 06/07/21 07:57> Skin: General skin exam: no rashes or lesions noted <Palomo Tavares MD - Last Filed: 06/07/21 07:57> Neuro: General: oriented to person and patient oriented x3 <Palomo Tavares MD - Last Filed: 06/07/21 07:57> Cranial nerves: Yes CN's II-XII intact bilaterally <Palomo Tavares MD - Last Filed: 06/07/21 07:57> Motor exam (neuro): 5/5 motor strength present throughout <Palomo Tavares MD - Last Filed: 06/07/21 07:57> Sensory Exam: No Sensory deficit (Neuro) <Palomo Tavares MD - Last Filed: 06/07/21 07:57> Extrem: General: Yes normal to inspection <Palomo Tavares MD - Last Filed: 06/07/21 07:57> Psych: Appearance: grossly normal <Palomo Tavares MD - Last Filed: 06/07/21 07:57> Course Reevaluation(s) Reevaluation #1: Patient placed in physician observation at 8am The indication for observation is that the patient needs more time to see if his depression improves or he will need to be admitted. At this time the patient is well developed well nourished, lungs clear, CV RRR, abd nontender, neuro is intact <Palomo Tavares MD - Last Filed: 06/07/21 07:57> Time: 07:57 <Palomo Tavares MD - Last Filed: 06/07/21 07:57> Reevaluation #2: Physician observation continued. Patient seen by CARE Team account consultant Yvonne who states patient is safe discharge. She states patient will be sent to the Living Room from the ED. <CHRIS Oh - Last Filed: 06/07/21 12:50> Time: 12:45 <CHRIS Oh - Last Filed: 06/07/21 12:50> MDM - Psych Lab Data Result diagrams: : 06/06/21 23:20 06/06/21 23:20 <Palomo Tavares MD - Last Filed: 06/07/21 07:57> Labs: Lab Results 06/06/21 06/06/21 06/06/21 Range/Units 21:39 23:20 23:20 WBC 12.5 H (4.8-10.8) X10*3/uL RBC 4.29 L (4.60-5.80) X10*6/uL Hgb 12.7 L (14.0-18.0) g/dl Hct 38.1 L (42.0-52.0) % MCV 88.8 (80.0-98.0) fL MCH 29.6 (27.0-33.0) pg MCHC 33.3 (31.0-36.0) g/dl RDW 16.6 H (11.0-16.0) % Plt Count 199 (160-400) X10*3/uL MPV 10.2 (9.4-12.4) fL Immature Gran % (Auto) 1.0 H (0.0-0.4) % Neut % (Auto) 84.2 H (45-73) % Lymph % (Auto) 5.5 L (20-40) % [place] % (Auto) 9.1 (2-11) % Eos % (Auto) 0.0 (0-4) % Baso % (Auto) 0.2 (0-2) % Lymph # (Auto) 0.7 L (1.2-4.9) X10*3/uL [place] # (Auto) 1.1 (0.1-1.2) X10*3/uL Eos # (Auto) 0.0 (0.0-0.4) X10*3/uL Baso # (Auto) 0.0 (0.0-0.2) X10*3/uL Abs Immat Gran (auto) 0.13 H (0.00-0.03) X10*3/uL Absolute Neuts (auto) 10.5 H (2.0-8.3) x10*3/uL Absolute Nucleated RBC 0.000 (0.0-0.012) X10*3/uL Nucleated RBC % (auto) 0.0 (0.0-0.2) /100WBC Sodium 135 (135-145) mmol/L Potassium 3.7 (3.3-5.1) mmol/L Chloride 105 (96-108) mmol/L Carbon Dioxide 21 L (22-29) mmol/L Anion Gap 13 (12-20) BUN 15 (9-16) mg/dL Creatinine 1.63 H (0.5-1.4) mg/dL Estim Creat Clear Calc 52.9 Estimated GFR 44 Random Glucose 138 H D (60-115) mg/dL Calcium 8.9 (8.4-10.2) mg/dL Total Bilirubin 0.3 (0.0-1.0) mg/dL AST 182 H (5-37) U/L ALT 72 H (0-40) U/L Alkaline Phosphatase 72 D (39-117) U/L Total Protein 7.3 (6.5-8.0) g/dL Albumin 4.2 (3.5-5.0) g/dL Urine Opiates Screen (Not Detect) Urine Fentanyl Screen (Not Detect) Ur Barbiturates Screen (Not Detect) Ur Phencyclidine Scrn (Not Detect) Ur Amphetamines Screen (Not Detect) U Benzodiazepines Scrn (Not Detect) Urine Cocaine Screen (Not Detect) U Marijuana (THC) Screen (Not Detect) Ethyl Alcohol mg/dL COVID-19 (JAMMIE) Negative (Negative) COVID-19 Clin Com See Note 06/06/21 06/06/21 Range/Units 23:20 23:49 WBC (4.8-10.8) X10*3/uL RBC (4.60-5.80) X10*6/uL Hgb (14.0-18.0) g/dl Hct (42.0-52.0) % MCV (80.0-98.0) fL MCH (27.0-33.0) pg MCHC (31.0-36.0) g/dl RDW (11.0-16.0) % Plt Count (160-400) X10*3/uL MPV (9.4-12.4) fL Immature Gran % (Auto) (0.0-0.4) % Neut % (Auto) (45-73) % Lymph % (Auto) (20-40) % [place] % (Auto) (2-11) % Eos % (Auto) (0-4) % Baso % (Auto) (0-2) % Lymph # (Auto) (1.2-4.9) X10*3/uL [place] # (Auto) (0.1-1.2) X10*3/uL Eos # (Auto) (0.0-0.4) X10*3/uL Baso # (Auto) (0.0-0.2) X10*3/uL Abs Immat Gran (auto) (0.00-0.03) X10*3/uL Absolute Neuts (auto) (2.0-8.3) x10*3/uL Absolute Nucleated RBC (0.0-0.012) X10*3/uL Nucleated RBC % (auto) (0.0-0.2) /100WBC Sodium (135-145) mmol/L Potassium (3.3-5.1) mmol/L Chloride (96-108) mmol/L Carbon Dioxide (22-29) mmol/L Anion Gap (12-20) BUN (9-16) mg/dL Creatinine (0.5-1.4) mg/dL Estim Creat Clear Calc Estimated GFR Random Glucose (60-115) mg/dL Calcium (8.4-10.2) mg/dL Total Bilirubin (0.0-1.0) mg/dL AST (5-37) U/L ALT (0-40) U/L Alkaline Phosphatase (39-117) U/L Total Protein (6.5-8.0) g/dL Albumin (3.5-5.0) g/dL Urine Opiates Screen Not Detected (Not Detect) Urine Fentanyl Screen POSITIVE H (Not Detect) Ur Barbiturates Screen Not Detected (Not Detect) Ur Phencyclidine Scrn Not Detected (Not Detect) Ur Amphetamines Screen Not Detected (Not Detect) U Benzodiazepines Scrn Not Detected (Not Detect) Urine Cocaine Screen Not Detected (Not Detect) U Marijuana (THC) Screen Not Detected (Not Detect) Ethyl Alcohol < 10 mg/dL COVID-19 (JAMMIE) (Negative) COVID-19 Clin Com <Palomo Tavares MD - Last Filed: 06/07/21 07:57> Lab Results 06/06/21 06/06/21 06/06/21 Range/Units 21:39 23:20 23:20 WBC 12.5 H (4.8-10.8) X10*3/uL RBC 4.29 L (4.60-5.80) X10*6/uL Hgb 12.7 L (14.0-18.0) g/dl Hct 38.1 L (42.0-52.0) % MCV 88.8 (80.0-98.0) fL MCH 29.6 (27.0-33.0) pg MCHC 33.3 (31.0-36.0) g/dl RDW 16.6 H (11.0-16.0) % Plt Count 199 (160-400) X10*3/uL MPV 10.2 (9.4-12.4) fL Immature Gran % (Auto) 1.0 H (0.0-0.4) % Neut % (Auto) 84.2 H (45-73) % Lymph % (Auto) 5.5 L (20-40) % [place] % (Auto) 9.1 (2-11) % Eos % (Auto) 0.0 (0-4) % Baso % (Auto) 0.2 (0-2) % Lymph # (Auto) 0.7 L (1.2-4.9) X10*3/uL [place] # (Auto) 1.1 (0.1-1.2) X10*3/uL Eos # (Auto) 0.0 (0.0-0.4) X10*3/uL Baso # (Auto) 0.0 (0.0-0.2) X10*3/uL Abs Immat Gran (auto) 0.13 H (0.00-0.03) X10*3/uL Absolute Neuts (auto) 10.5 H (2.0-8.3) x10*3/uL Absolute Nucleated RBC 0.000 (0.0-0.012) X10*3/uL Nucleated RBC % (auto) 0.0 (0.0-0.2) /100WBC Sodium 135 (135-145) mmol/L Potassium 3.7 (3.3-5.1) mmol/L Chloride 105 (96-108) mmol/L Carbon Dioxide 21 L (22-29) mmol/L Anion Gap 13 (12-20) BUN 15 (9-16) mg/dL Creatinine 1.63 H (0.5-1.4) mg/dL Estim Creat Clear Calc 52.9 Estimated GFR 44 Random Glucose 138 H D (60-115) mg/dL Calcium 8.9 (8.4-10.2) mg/dL Total Bilirubin 0.3 (0.0-1.0) mg/dL AST 182 H (5-37) U/L ALT 72 H (0-40) U/L Alkaline Phosphatase 72 D (39-117) U/L Total Protein 7.3 (6.5-8.0) g/dL Albumin 4.2 (3.5-5.0) g/dL Urine Opiates Screen (Not Detect) Urine Fentanyl Screen (Not Detect) Ur Barbiturates Screen (Not Detect) Ur Phencyclidine Scrn (Not Detect) Ur Amphetamines Screen (Not Detect) U Benzodiazepines Scrn (Not Detect) Urine Cocaine Screen (Not Detect) U Marijuana (THC) Screen (Not Detect) Ethyl Alcohol mg/dL COVID-19 (JAMMIE) Negative (Negative) COVID-19 Clin Com See Note 06/06/21 06/06/21 Range/Units 23:20 23:49 WBC (4.8-10.8) X10*3/uL RBC (4.60-5.80) X10*6/uL Hgb (14.0-18.0) g/dl Hct (42.0-52.0) % MCV (80.0-98.0) fL MCH (27.0-33.0) pg MCHC (31.0-36.0) g/dl RDW (11.0-16.0) % Plt Count (160-400) X10*3/uL MPV (9.4-12.4) fL Immature Gran % (Auto) (0.0-0.4) % Neut % (Auto) (45-73) % Lymph % (Auto) (20-40) % [place] % (Auto) (2-11) % Eos % (Auto) (0-4) % Baso % (Auto) (0-2) % Lymph # (Auto) (1.2-4.9) X10*3/uL [place] # (Auto) (0.1-1.2) X10*3/uL Eos # (Auto) (0.0-0.4) X10*3/uL Baso # (Auto) (0.0-0.2) X10*3/uL Abs Immat Gran (auto) (0.00-0.03) X10*3/uL Absolute Neuts (auto) (2.0-8.3) x10*3/uL Absolute Nucleated RBC (0.0-0.012) X10*3/uL Nucleated RBC % (auto) (0.0-0.2) /100WBC Sodium (135-145) mmol/L Potassium (3.3-5.1) mmol/L Chloride (96-108) mmol/L Carbon Dioxide (22-29) mmol/L Anion Gap (12-20) BUN (9-16) mg/dL Creatinine (0.5-1.4) mg/dL Estim Creat Clear Calc Estimated GFR Random Glucose (60-115) mg/dL Calcium (8.4-10.2) mg/dL Total Bilirubin (0.0-1.0) mg/dL AST (5-37) U/L ALT (0-40) U/L Alkaline Phosphatase (39-117) U/L Total Protein (6.5-8.0) g/dL Albumin (3.5-5.0) g/dL Urine Opiates Screen Not Detected (Not Detect) Urine Fentanyl Screen POSITIVE H (Not Detect) Ur Barbiturates Screen Not Detected (Not Detect) Ur Phencyclidine Scrn Not Detected (Not Detect) Ur Amphetamines Screen Not Detected (Not Detect) U Benzodiazepines Scrn Not Detected (Not Detect) Urine Cocaine Screen Not Detected (Not Detect) U Marijuana (THC) Screen Not Detected (Not Detect) Ethyl Alcohol < 10 mg/dL COVID-19 (JAMMIE) (Negative) COVID-19 Clin Com <CHRIS Oh - Last Filed: 06/07/21 12:50> Discharge Plan Discharge Clinical Impression: Bipolar disorder <Palomo Tavares MD - Last Filed: 06/07/21 07:57> Patient Disposition: Home, Self-Care <Palomo Tavares MD - Last Filed: 06/07/21 07:57> Instructions: Bipolar Disorder (ED) <Palomo Tavares MD - Last Filed: 06/07/21 07:57> Additional Instructions: You will be going to [facility] after discharge. Return to the ED for any suicidal/homicidal ideation, auditory/visual hallucination, any physical complaints, or any other concerning symptoms. Also will need to be follow up with PCP. <Palomo Tavares MD - Last Filed: 06/07/21 07:57> Prescriptions: No Action lithium carbonate 300 mg capsule 600 mg PO BEDTIME RF: 0 quetiapine 100 mg tablet 100 mg PO BEDTIME RF: 0 quetiapine 25 mg tablet 1 tab PO BID RF: 0 <Palomo Tavares MD - Last Filed: 06/07/21 07:57> Print Language: [place] <Palomo Tavares MD - Last Filed: 06/07/21 07:57>
[2021-06-06 23:25] LABS: MANUAL DIFF FLAG NO
[2021-06-06 23:27] LABS: Basophils Percent Auto 0.2 % (0-2); Hematocrit 38.1 % (42.0-52.0); Hemoglobin 12.7 g/dl (14.0-18.0); Imm Gran Abs Auto 0.13 X10*3/uL (0.00-0.03); Lymphocytes Absolute Auto 0.7 X10*3/uL (1.2-4.9); Lymphocytes Percent Auto 5.5 % (20-40); Mean Corpuscular HGB Conc 33.3 g/dl (31.0-36.0); Mean Corpuscular Hemoglobin 29.6 pg (27.0-33.0); Mean Corpuscular Volume 88.8 fL (80.0-98.0); Mean Platelet Volume 10.2 fL (9.4-12.4); Monocytes Absolute Auto 1.1 X10*3/uL (0.1-1.2); Monocytes Percent Auto 9.1 % (2-11); Neutrophils Absolute Auto 10.5 x10*3/uL (2.0-8.3); Neutrophils Percent Auto 84.2 % (45-73); Platelet Count 199 X10*3/uL (160-400); Red Blood Count 4.29 X10*6/uL (4.60-5.80); Red Cell Distribution Width 16.6 % (11.0-16.0); White Blood Count 12.5 X10*3/uL (4.8-10.8)
[2021-06-06 23:40] LABS: Ethanol < 10 mg/dL
[2021-06-07 00:03] LABS: Alanine Aminotransferase 72 U/L (0-40); Albumin Level 4.2 g/dL (3.5-5.0); Alkaline Phosphatase 72 U/L (39-117); Anion Gap 13 (12-20); Aspartate Amino Transferase 182 U/L (5-37); Bilirubin Total 0.3 mg/dL (0.0-1.0); Blood Urea Nitrogen 15 mg/dL (9-16); Calcium 8.9 mg/dL (8.4-10.2); Carbon Dioxide 21 mmol/L (22-29); Chloride 105 mmol/L (96-108); Creatinine Clr Calc Pharmacy 52.9; Estimated Glomerular Filt Rate 44; Glucose Random 138 mg/dL (60-115); Potassium 3.7 mmol/L (3.3-5.1); Sodium 135 mmol/L (135-145); Total Protein 7.3 g/dL (6.5-8.0)
[2021-06-07] MEDS: QUEtiapine Fumarate 100 MG TABLET PO (00:09)
[2021-06-07] MEDS: Lithium Carbonate 300 MG CAPSULE 600 MG PO (00:09)
[2021-06-07] MEDS: QUEtiapine Fumarate 25 MG TABLET PO ×2 (00:09→10:52)
[2021-06-07 00:26] LABS: Amphetamine Screen Urine Not Detected (Not Detect); Barbiturates, Urine Not Detected (Not Detect); Benzodiazepines Screen Urine Not Detected (Not Detect); Cannabinoid Screen Urine Not Detected (Not Detect); Cocaine Screen Urine Not Detected (Not Detect); Fentanyl, urine POSITIVE (Not Detect); Opiate Screen Urine Not Detected (Not Detect); Phencyclidine Screen Urine Not Detected (Not Detect)
[2021-06-07 06:16] VITALS: BP 134/82; PULSE 100; RESP 16; TEMP 36.8; O2SAT 95
--- NOTE | 2021-06-07 06:47 | PC.NURSE ---
Patient slept through he night, no distress observed/reported, patient is tremulous, behavior appropriate, care team will see whether patient needs full crises eval or not, med compliant, will continue to monitor.
--- NOTE | 2021-06-07 07:23 | PC.NURSE ---
patient appears to remain at rest at present, respirations are even and unlabored, patient appears in no distress
--- NOTE | 2021-06-07 12:45 | MHC.CARE ---
Pt is well known to the CARE Team. Pt presented to [facility] after reporting depression and SI. Pt reports he was discharged from [facility] on 06/06/21 to [facility] in [place] and did not like the location and subsequently presented to [facility] via EMS. Pt now reporting experiencing homelessness and wanting to get help. Pt denies having relapsed since discharge though tox screen is positive for fentanyl . Pt signed IRMA for [facility] and gave verbal permission for t/w to Frannie. . CARE reviewed discharge summary from [facility] and spoke with Frannie De La Fuente from [facility]. Plan for Pt to be follow up with the living room who will assist Pt in process of obtaining and ID. The living room will allow Pt to stay for the night. CARE Team case consulted with SYD Ivey who is agreement with plan to discharge to the living room. Pt aware of plan of care and agreeable.
== END 2021-06-07 16:14 | disposition home or self-care (01) ==
PROVIDERS: Emergency Provider Emergency Medicine
DX: F31.9 Bipolar disorder, unspecified (principal); R45.851 Suicidal ideations; F12.20 Cannabis dependence, uncomplicated; F14.20 Cocaine dependence, uncomplicated; F11.20 Opioid dependence, uncomplicated; E11.9 Type 2 diabetes mellitus without complications; B19.20 Unspecified viral hepatitis C without hepatic coma; F17.200 Nicotine dependence, unspecified, uncomplicated; Z20.822 Contact with and (suspected) exposure to COVID-19; Z59.00 Homelessness unspecified; Z79.899 Other long term (current) drug therapy
CPT/HCPCS: 36415; 80053; 80307; 82077; 85025; 87635; 99283; 99284